=== PATIENT | female | born 1975 | race Caucasian/White ===

== ENCOUNTER 2021-09-01 11:52 | Observation (INO) | payer BC, SELFPAY ==
[2021-09-01] VITALS (13 sets, daily range): BP systolic 144–157; BP diastolic 93–106; PULSE 91–112; RESP 20–25; TEMP 36.4–37.2; O2SAT 94–98; BMI 27.8
--- NOTE | ~2021-09-01 | CT_ITS ---
EXAMINATION: CTA chest PE protocol EXAM DATE: 09/01/2021 16:40 INDICATION: Shortness of breath. COVID positive. TECHNIQUE: Spiral CTA of the chest (pulmonary arteries) was performed with 100 cc Omnipaque 350 intr avenous contrast injection. Images were acquired during the pulmonary arterial phase. Coronal maxi mum intensity projection 3D-reconstructions were created by the technologist on dedicated workstation . Axial, coronal and sagittal reformatted images were reviewed. The dose-length product (DLP) for t his examination was 310.71 mGy-cm. The exposure was tailored according to patient size (auto mA exp osure control), and iterative reconstruction (ASIR) was used as additional dose reduction technique. There is no prior study for comparison. FINDINGS: Mildly limited subsegmental evaluation. No enhancement defects within the pulmonary arterie s. No thoracic aortic dissection. Mildly aneurysmal ascending aorta at 4.5 cm. The lungs are clear. Mild emphysema. There are no pleural or pericardial effusions. Tracheobronchial tree is patent. There is no mediastinal, hilar or axillary lymphadenopathy. There is no pneumothorax. Heart rossana l in size. There is mild coronary arterial calcification, arterial sclerosis. Upper abdomen is unr emarkable. There is thoracic spondylosis without osteoblastic or osteolytic lesions identified. IMPRESSION: 1. No pulmonary emboli suspected. No focal airspace disease. 2. Mild emphysema. Reviewed, dictated and finalized at location G. SCHOOL MANAGER
--- NOTE | ~2021-09-01 | XR_ITS ---
XR chest 2V 09/01/2021 12:30 Indication: Dyspnea. Procedure: 2 view chest Comparison: No prior studies for comparison. Findings: Bibasilar airspace disease, compatible with pneumonia. Heart size normal. No acute osseous abnormality. Impression: 1: Bibasilar airspace disease, compatible with pneumonia. Reviewed, dictated and finalized at location B. KITCHEN COOK Impression: 1: Bibasilar airspace disease, compatible with pneumonia.
--- NOTE | 2021-09-01 11:59 | ECG_ITS ---
Measurements Intervals [place] Rate: 105 P: 77 NV: 145 QRS: 59 QRSD: 86 T: 53 QT: 331 QTc: 438 Interpretive Statements SINUS TACHYCARDIA BASELINE ARTIFACT- III, AVL, V4, V6 ABNORMAL ECG Electronically Signed On 09-01-2021 13:58:54 PALLIATIVE CARE PHYSICIAN by Vivek Winn D.O.
[2021-09-01 12:12] LABS: Basophils Absolute Auto 0.2 K/mm3 (0.0-0.1); Basophils Percent Auto 1.3 % (0.2-1.2); Eosinophils Absolute Auto 1.2 K/mm3 (0-0.3); Eosinophils Percent Auto 8.8 % (0-4.4); Hematocrit 33.1 % (37.0-47.0); Immature Granulocyte Absolute 0.05 K/mm3 (0.00-0.031); Immature Granulocyte Percent A 0.4 % (0-0.5); Lymphocytes Absolute Auto 1.03 K/mm3 (0.9-3.2); Lymphocytes Percent Auto 7.8 % (18.3-44.2); Mean Corpuscular HGB Conc 27.2 g/dl (32-36); Mean Corpuscular Hemoglobin 19.6 pg (26-34); Mean Corpuscular Volume 72.1 fl (80-100); Mean Platelet Volume 9.9 fl (7.4-10.4); Monocytes Absolute Auto 0.5 K/mm3 (0.1-0.6); Monocytes Percent Auto 4.1 % (2.6-8.5); Neutrophils Absolute Auto 10.2 K/mm3 (1.3-6.7); Neutrophils Percent Auto 77.6 % (45.5-73.1); Platelet Count Result 404 k/mm3 (150-375); Red Blood Count 4.59 M/mm3 (4.2-5.4); Red Cell Distribution Width 18.6 % (11.5-14.5); White Blood Count 13.2 K/mm3 (4.5-10.0)
--- NOTE | 2021-09-01 12:17 | ED.GENADULT ---
HPI - General Adult General Chief complaint: Shortness of Breath/Dyspnea Stated complaint: COPD Time Seen by Provider: 09/01/21 12:00 Source: RN notes reviewed History of Present Illness HPI narrative: Patient presents emergency room from home for shortness of breath. Patient that she has a history of COPD and has had increased shortness of breath over the past 3 days states that she has been using her inhaler at home with no relief states he been doing work at her house and it is been colder and seems to be making her symptoms worse she denies any fevers or chills chest pain abdominal pain nausea vomiting or any other symptoms. States that she does have a history of tobacco use Related Data Allergies Allergy/AdvReac Type Severity Reaction Status Date / Time aripiprazole Allergy Unknown Swelling Verified 09/01/21 11:59 of Lip/Tongue/Throat Penicillins Allergy Unknown Difficulty Verified 09/01/21 16:07 Breathing Sulfa (Sulfonamide Allergy Unknown Difficulty Verified 09/01/21 16:07 Antibiotics) Breathing Review of Systems Review of Systems: Gen.: Denies fevers or chills ENT: Denies congestion Respiratory: See HPI CV: Denies chest pain or palpitations GI: Denies abdominal pain nausea, emesis or diarrhea Musculoskeletal: Denies back pain or muscle pain Neuro: Denies numbness, tingling, weakness or focal weakness Skin: Denies rash Except as documented, all other systems reviewed and negative [facility] Past Medical History Medical History (Updated 09/01/21 @ 17:12 by Carlos Das DO) COPD (chronic obstructive pulmonary disease) Social History Social History (Updated 09/01/21 @ 17:10 by Carlos Das DO) Smoking status: Current every day smoker Exam Narrative: APPEARANCE: No acute distress, nontoxic, resting in bed EYES: EOMI HEENT: Normocephalic, atraumatic, OMM RESPIRATORY: Mild respiratory distress wheezing throughout the bilateral lung martinez with decreased breath sounds in the bases CARDIOVASCULAR: Tachycardic regular without murmurs rubs or gallops. ABDOMINAL: Soft, nontender, nondistended, no rebound or guarding MUSCULOSKELETAl: Moves all extremities. No clubbing, cyanosis or edema. NEURO: Awake and alert. Following commands, speech normal, no focal deficits SKIN:: Warm, dry. No rashes lesions or abrasions PSYCHIATRIC: Normal affect/mood, Course Course Emergency Course: Following breathing treatment patient continues to have wheezing throughout bilateral lung martinez Discussed with TIMI Swartz for Dr. Cabezas presentation and work-up agrees with admission at this time Discussed with patient and family results of workup and diagnosis. Discussed need for admission. Patient and family understand and agree to current treatment plan Vital Signs Vital signs: Vital Signs Temperature 98 F 09/01/21 11:55 Pulse Rate 112 H 09/01/21 11:55 Respiratory Rate 20 09/01/21 11:55 Blood Pressure 155/102 H 09/01/21 11:55 Pulse Oximetry 97 09/01/21 11:55 Temperature 98 F 09/01/21 11:55 Pulse Rate 105 H 09/01/21 15:14 Respiratory Rate 25 H 09/01/21 15:14 Blood Pressure 152/105 H 09/01/21 15:14 Pulse Oximetry 94 09/01/21 15:14 Medical Decision Making Vital Signs Vital Signs: Vital Signs Temperature 98 F 09/01/21 11:55 Pulse Rate 112 H 09/01/21 11:55 Respiratory Rate 20 09/01/21 11:55 Blood Pressure 155/102 H 09/01/21 11:55 Pulse Oximetry 97 09/01/21 11:55 Temperature 98 F 09/01/21 11:55 Pulse Rate 105 H 09/01/21 15:14 Respiratory Rate 25 H 09/01/21 15:14 Blood Pressure 152/105 H 09/01/21 15:14 Pulse Oximetry 94 09/01/21 15:14 Lab Data Result diagrams: 09/01/21 12:02 09/01/21 12:02 Labs: Lab Results 09/01/21 09/01/21 09/01/21 Range/Units 12:01 12:02 12:02 WBC 13.2 H (4.5-10.0) K/mm3 RBC 4.59 (4.2-5.4) M/mm3 Hgb 9.0 L (12.0-15.0) g/dL Hct 33.1 L (37.0-47.0) % MCV 72.1
[2021-09-01 12:27] LABS: Alanine Aminotransferase 18 U/L (4-35); Albumin Level 4.3 g/dL (3.5-5.1); Alkaline Phosphatase 86 U/L (38-126); Anion Gap 6 mmol/L (8-16); Aspartate Amino Transferase 25 U/L (14-36); Bilirubin,Total 0.4 mg/dL (0.2-1.3); Blood Urea Nitrogen 15 mg/dL (7-17); Calcium 8.9 mg/dL (8.4-10.2); Carbon Dioxide 24 mmol/L (22-30); Chloride 106 mmol/L (98-107); Estimated CRCL calculation 92 ml/min; Estimated Glomerular Filt Rate > 60; Glucose 138 mg/dL (65-110); Potassium 4.1 mmol/L (3.4-5.0); Sodium 136 mmol/L (137-145)
[2021-09-01] MEDS: methylPREDNISolone SOD SUCC 125 MG VIAL IV PUSH (12:53)
[2021-09-01] MEDS: ALBUTEROL SULFATE NEB 2.5 MG/0.5 ML INH 5 MG INHALATION (13:06)
[2021-09-01] MEDS: IPRATROPIUM BR 0.02% INH SOLN 0.5 MG/2.5 ML VIAL INHALATION (13:06)
[2021-09-01 13:19] LABS: Anisocytosis 1+ (NORMAL); Hypochromasia 1+ (NORMAL); Ovalocytes 1+ (NORMAL); Platelet Estimate Adequate (Adequate); Tear Drop Cells 1+ (NORMAL)
[2021-09-01 13:43] LABS: Lactic Acid Reflex 1.1 mmol/L (0.7-2.1)
[2021-09-01 14:37] LABS: SARS-CoV-2 RNA PCR Positive
--- NOTE | 2021-09-01 15:30 | PM.IMHP ---
H&P: HPI History of Present Illness Date/Time: 09/01/21 15:30 Chief Complaint: Short of breath. Narrative: This is a 46-year-old female smoker with COPD, hypertension, anxiety, and recreational methamphetamine use who presented to the emergency today for evaluation of shortness of breath. She has not felt well for several days with a nonproductive cough and increasing dyspnea on lesser and lesser exertion. She has been using her inhaler at home with out much relief and she decided come in today. In the ER she did test positive for SARS-CoV-2 by PCR and with further questioning denies exposure to and she has not been vaccinated for Covid. She also denies fever, chills, sweats, headache, congestion, sore throat, chest pain, pleuritic pain, cough, nausea, vomiting, and diarrhea. Review of Systems Review of Systems: 12 systems were reviewed and are negative except as per HPI. [facility] Past Medical History Medical History (Updated 09/01/21 @ 20:17 by Sheridan Rothman PA-C) Chronic obstructive pulmonary disease Depression with anxiety Gastroesophageal reflux disease Hypertension Perforated peptic ulcer Shingles Surgical History Surgical History (Updated 09/01/21 @ 20:13 by Sheridan Rothman PA-C) History of cholecystectomy History of laparotomy Peripheral peptic ulcer. Family History Family History Mother Hypertension Father Hypertension Other Diabetes mellitus Hyperthyroidism Lupus Social History Social History (Updated 09/01/21 @ 20:14 by Sheridan Rothman PA-C) Social History: Surrogate decision-maker: Romelia Burgos, mother. Code status: Full code. Smoking packs per day: 1 Smoking cigarettes per day: 20.0 Smoking status: Current every day smoker Tobacco type: cigarettes Alcohol intake: never Substance use: current Substance use type: marijuana and methamphetamine Last use: 08/31/21 Meds Home Medications and Allergies Home Medications Medication Instructions Recorded Confirmed Type albuterol sulfate [ProAir HFA] 90 mcg INHALATION TID PRN 09/01/21 09/01/21 History amlodipine 10 mg PO DAILY 09/01/21 09/01/21 History clonazepam [Klonopin] 1 mg PO TID PRN 09/01/21 09/01/21 History famotidine [Acid Controller] 20 mg PO DAILY 09/01/21 09/01/21 History Allergies Allergy/AdvReac Type Severity Reaction Status Date / Time aripiprazole Allergy Unknown Swelling Verified 09/01/21 11:59 of Lip/Tongue/Throat Penicillins Allergy Unknown Difficulty Verified 09/01/21 16:07 Breathing Sulfa (Sulfonamide Allergy Unknown Difficulty Verified 09/01/21 16:07 Antibiotics) Breathing bupropion [From Wellbutrin] Allergy Confusion Verified 09/01/21 18:44 Vital Signs Vital Signs - 24 hr 09/01/21 11:55 09/01/21 12:16 09/01/21 13:04 Temperature 98 F Pulse Rate 112 H 98 Respiratory Rate 20 22 H Blood Pressure 155/102 H 152/106 H Pulse Oximetry 97 98 97 09/01/21 13:08 09/01/21 13:16 09/01/21 15:14 Temperature Pulse Rate 91 111 H 105 H Respiratory Rate 24 H 20 25 H Blood Pressure 152/105 H Pulse Oximetry 94 Exam Narrative: General: Mildly ill-appearing female in the setting of pain position in bed. Weight: 79.4 kg. BMI: 27.9. HEENT: PERRL, EOMI. Sclerae anicteric. Tacky mucous membranes. Oropharynx clear. Neck: Supple. No lymphadenopathy or JVD. Respiratory: Respirations are nonlabored. Diminished breath sounds throughout with increased expiratory phase and mild scattered wheezing. Cardiovascular: Tachycardic with regular rhythm and S1-S2. Gastrointestinal: Abdomen is soft, nontender, and nondistended with positive bowel sounds. Skin: Warm and dry. Fingernails. No rash or lesions on limited exam. Extremities: No cyanosis, clubbing, or edema. Radial and pedal pulses intact. Neurological: Alert. Cranial nerves 2-12 are grossly intact. No gross focal deficits to casual conversation. Psych
[2021-09-01 15:56] LABS: Ethanol < 10 mg/dL (<10)
[2021-09-01 16:07] LABS: Alveolar/Arterial O2 Gradient 51.7 mmHg; Base Excess ABG -3.3 mEq/l (+/-2.0); Fractional Inspired Oxygen 21 %; HCO3 ABG 20.1 mEq/l (22.0-26.0); Oxygen Content ABG 12.3 %vol (16.0-22.0); Oxygen Saturation ABG 92.8 % (95.0-100.0); Oxyhemoglobin 90.9 % THb (90.0-100.0); PCO2 ABG 30.4 mmHg (35.0-45.0); PO2 ABG 61.6 mmHg (80.0-100.0); PO2 FiO2 Ratio Arterial Blood 2.93 %; Total Hemoglobin 9.6 g/dL (12.0-18.0); pH ABG 7.439 (7.350-7.450)
[2021-09-01 16:08] LABS: Device ROOM AIR; Modified Allen's Test Pass; Site Drawn LEFT RADIAL
[2021-09-01 16:13] LABS: Add Urine Microscopic? YES; Appearance Urine Clear (Clear); Bacteria Urine Trace /hpf; Bilirubin Urine Negative (Negative); Blood Urine 3+ (Negative); Color Urine Straw (Yellow); Glucose Urine UA Negative (Negative); Ketones Urine Negative (Negative); Leukocyte Esterase Ur Negative LEU/UL (Negative); Mucus Urine Rare /lpf; Nitrate Urine Negative (Negative); Protein Urine Negative (Negative); Specific Grav Ur 1.011 (1.001-1.035); Squamous Epithelial Cell Urine Moderate /hpf (Few); Urobilinogen Urine Negative mg/dL (<2.0); WBC Urine 0-3 /hpf
[2021-09-01] MEDS: ALBUTEROL SULFATE (*SP) AEROSOL 1 PUFF 2 PUFF INHALATION (16:18)
[2021-09-01 16:34] LABS: Barbiturate Screen Urine Negative (Negative); Benzodiazepines Screen Urine Negative (Negative)
[2021-09-01 16:46] LABS: Cannabinoid Screen Urine Negative (Negative); Cocaine Screen Urine Negative (Negative); Methadone Screen Urine Negative (Negative); Opiate Screen Urine Negative (Negative); Phencyclidine Screen Urine Negative (Negative)
[2021-09-01 17:12] LABS: Amphetamine Screen Urine Positive (Negative)
--- NOTE | 2021-09-01 18:09 | PC.NURSE ---
report given to misti toro
--- NOTE | 2021-09-01 18:23 | ADMGEN ---
This patient, Amanda Pringle, was admitted to 3 [facility] Surg Room 310-01. Patient/family oriented to hospital policies and general routines including ID bracelet, bed and alarms, visiting hours, pain management, procedures, bathroom and other care routines, personal items, smoking policy, room service/diet, and visiting hours. Information on how to activate the Rapid Response Team has been discussed. Patient/Family are encouraged to report perceived risks to care and to ask questions if they do not understand what they are told or what they should do.
[2021-09-01 21:18] LABS: Iron 25 ug/dL (37-170)
[2021-09-01] MEDS: IPRATROPIUM BR 0.02% INH SOLN 0.5 MG/2.5 ML VIAL (21:27)
[2021-09-01 21:28] LABS: Percent Iron Saturation 6 % (20-50)
[2021-09-01 21:50] LABS: Thyroid Stimulating Hormone Reflex 0.849 uIU/mL (0.465-4.68)
[2021-09-01 21:54] LABS: Ferritin 3.85 ng/mL (6.24-137)
[2021-09-01] MEDS: DOXYCYCLINE 100 MG/NS 100 ML 100 MG/100 ML BAG IVPB (22:19)
[2021-09-01 22:26] LABS: Folic Acid 11.6 ng/mL (2.76->20)
[2021-09-01] MEDS: methylPREDNISolone SOD SUCC 125 MG VIAL 60 MG IV PUSH (23:13)
[2021-09-02] VITALS (12 sets, daily range): BP systolic 133–162; BP diastolic 86–98; PULSE 96–116; RESP 16–22; TEMP 36.6–37.3; O2SAT 94–99
[2021-09-02] MEDS: IPRATROPIUM BR 0.02% INH SOLN 0.5 MG/2.5 ML VIAL INHALATION ×2 (02:04→08:39)
[2021-09-02] MEDS: LEVALBUTEROL HFA (*SP) 15 GM INHALER 2 PUFF INHALATION ×4 (02:04→20:35)
[2021-09-02] MEDS: methylPREDNISolone SOD SUCC 125 MG VIAL 60 MG IV PUSH ×4 (05:21→23:43)
[2021-09-02 06:47] LABS: Basophils Percent Auto 0.2 % (0.2-1.2); Hematocrit 31.8 % (37.0-47.0); Hemoglobin 8.8 g/dL (12.0-15.0); Immature Granulocyte Absolute 0.12 K/mm3 (0.00-0.031); Lymphocytes Percent Auto 4.8 % (18.3-44.2); Mean Corpuscular HGB Conc 27.7 g/dl (32-36); Mean Corpuscular Hemoglobin 19.3 pg (26-34); Mean Corpuscular Volume 69.6 fl (80-100); Mean Platelet Volume 9.7 fl (7.4-10.4); Monocytes Absolute Auto 0.2 K/mm3 (0.1-0.6); Monocytes Percent Auto 1.4 % (2.6-8.5); Neutrophils Absolute Auto 11.5 K/mm3 (1.3-6.7); Neutrophils Percent Auto 92.6 % (45.5-73.1); Platelet Count Result 449 k/mm3 (150-375); Red Blood Count 4.57 M/mm3 (4.2-5.4); Red Cell Distribution Width 18.6 % (11.5-14.5); White Blood Count 12.4 K/mm3 (4.5-10.0)
[2021-09-02 07:05] LABS: Alanine Aminotransferase 19 U/L (4-35); Albumin Level 4.1 g/dL (3.5-5.1); Alkaline Phosphatase 83 U/L (38-126); Anion Gap 10 mmol/L (8-16); Aspartate Amino Transferase 24 U/L (14-36); Bilirubin,Total 0.4 mg/dL (0.2-1.3); Blood Urea Nitrogen 17 mg/dL (7-17); Calcium 8.7 mg/dL (8.4-10.2); Carbon Dioxide 21 mmol/L (22-30); Chloride 105 mmol/L (98-107); Estimated CRCL calculation 84 ml/min; Estimated Glomerular Filt Rate > 60; Glucose 205 mg/dL (65-110); Magnesium 1.9 mg/dL (1.6-2.3); Potassium 4.3 mmol/L (3.4-5.0); Sodium 136 mmol/L (137-145)
[2021-09-02 07:20] LABS: Anisocytosis 2+ (NORMAL); Atypical Lymphocytes Present
[2021-09-02] MEDS: FAMOTIDINE 20 MG TABLET PO (09:08)
[2021-09-02] MEDS: DOXYCYCLINE 100 MG/NS 100 ML 100 MG/100 ML BAG IVPB ×2 (09:08→21:00)
[2021-09-02] MEDS: amLODIPine BESYLATE 5 MG TABLET 10 MG PO (09:08)
[2021-09-02] MEDS: clonazePAM (*CRX) 0.5 MG TABLET 1 MG PO ×3 (09:16→23:43)
[2021-09-02 11:15] LABS: Glucose Point of Care 251 mg/dl (65-105)
[2021-09-02] MEDS: INSULIN ASPART (*BKC) 100 UNITS/ML SUB-Q (12:47)
--- NOTE | 2021-09-02 13:41 | PM.IMPN ---
Progress Note: A&P Assessment and Plan (1) Acute exacerbation of chronic obstructive airways disease: Code(s): J44.1 - Chronic obstructive pulmonary disease with (acute) exacerbation Status: Acute Assessment and Plan: -Secondary to ongoing tobacco abuse and COVID-19. -Scheduled nebulizers and methylprednisolone. -She has been started on doxycycline for possible concomitant pneumonia. (2) COVID-19: Code(s): U07.1 - COVID-19 Status: Acute Assessment and Plan: -Not requiring oxygen, no indication for remdesivir at this time -pt is unvaccinated (3) Microcytic anemia: Code(s): D50.9 - Iron deficiency anemia, unspecified Status: Acute Assessment and Plan: -Check iron studies. (4) Depression with anxiety: Code(s): F41.8 - Other specified anxiety disorders Status: Acute Assessment and Plan: -No acute issues. -Continue Klonopin as needed. (5) Gastroesophageal reflux disease: Code(s): K21.9 - Gastro-esophageal reflux disease without esophagitis Status: Acute Assessment and Plan: -No acute issues. -Continue famotidine. (6) Hypertension: Code(s): I10 - Essential (primary) hypertension Status: Acute Assessment and Plan: -Blood pressures were reviewed and they have been running high. -Continue amlodipine and monitor; make adjustments accordingly. Subjective Date/time seen: 09/02/21 13:41 Interval history: 46-year-old female smoker with COPD, hypertension, anxiety, and recreational methamphetamine, admitted for COPD exacerbation and COVID 19. Pt anxious and tearful on exam with pressured and tangential speech. She c/o productive cough with yellow sputum. SOB is improving. No chest pain. Does have nasal congestion. No sore throat. No N/V/abd pain. Pt states she uses meth daily but has never had withdrawals and can quit any time. Review of Systems Review of Systems: All systems reviewed & are unremarkable except as noted in HPI and below Exam Narrative: General: anxious, tearful, mildly ill appearing, disheveled appearance HEENT: PERRL. Sclerae anicteric. Neck: Supple. Respiratory: Mildy tachypneic. Diminished breath sounds throughout with increased expiratory phase and mild scattered wheezing. Cardiovascular: Tachycardic with regular rhythm and S1-S2. Gastrointestinal: Abdomen is soft, nontender, and nondistended with positive bowel sounds. Skin: Warm and dry. . Extremities: No edema, moves all 4 extremities Neurological: Alert. Cranial nerves 2-12 are grossly intact. No gross focal deficits to casual conversation. Psychiatric: Pressured and tangential speech. Poor eye contact. Objective Data Vital Signs Vital Signs: Vital Signs - 24 hr 09/01/21 15:14 09/01/21 18:06 09/01/21 19:05 Temperature 99.0 F Pulse Rate 105 H 110 H 105 H Respiratory Rate 25 H 21 H 20 Blood Pressure 152/105 H 144/93 H 157/100 H Pulse Oximetry 94 96 94 09/01/21 21:00 09/01/21 21:10 09/01/21 21:32 Temperature Pulse Rate 110 H 110 H 110 H Respiratory Rate 24 H 24 H 24 H Blood Pressure Pulse Oximetry 94 09/01/21 21:35 09/01/21 21:55 09/02/21 00:00 Temperature 97.5 F L 98.1 F Pulse Rate 110 H 107 H 100 Respiratory Rate 24 H 20 16 Blood Pressure 149/95 H 152/95 H Pulse Oximetry 94 95 94 09/02/21 02:05 09/02/21 02:15 09/02/21 05:59 Temperature 97.8 F Pulse Rate 112 H 112 H 103 H Respiratory Rate 22 H 22 H 16 Blood Pressure 162/95 H Pulse Oximetry 94 09/02/21 08:00 09/02/21 08:40 09/02/21 08:49 Temperature 99.1 F Pulse Rate 116 H 108 H 110 H Respiratory Rate 18 22 H 22 H Blood Pressure 161/94 H Pulse Oximetry 97 94 09/02/21 11:18 Temperature 98.6 F Pulse Rate 116 H Respiratory Rate 18 Blood Pressure 162/86 H Pulse Oximetry 97 Intake/Output Intake/Output: Intake & Output 08/30/21 08/31/21
[2021-09-02 16:16] LABS: Glucose Point of Care 196 mg/dl (65-105)
[2021-09-02 20:34] LABS: Glucose Point of Care 211 mg/dl (65-105)
[2021-09-03] MEDS: LEVALBUTEROL HFA (*SP) 15 GM INHALER 2 PUFF INHALATION ×2 (02:22→07:57)
[2021-09-03 03:54] VITALS: BP 133/90; PULSE 96; RESP 18; TEMP 36.6; O2SAT 99
[2021-09-03] MEDS: methylPREDNISolone SOD SUCC 125 MG VIAL 60 MG IV PUSH ×2 (05:35→08:44)
[2021-09-03 06:45] LABS: Basophils Percent Auto 0.1 % (0.2-1.2); Hematocrit 31.3 % (37.0-47.0); Hemoglobin 8.6 g/dL (12.0-15.0); Immature Granulocyte Absolute 0.26 K/mm3 (0.00-0.031); Immature Granulocyte Percent A 1.2 % (0-0.5); Lymphocytes Absolute Auto 0.74 K/mm3 (0.9-3.2); Lymphocytes Percent Auto 3.3 % (18.3-44.2); Mean Corpuscular HGB Conc 27.5 g/dl (32-36); Mean Corpuscular Hemoglobin 19.5 pg (26-34); Mean Corpuscular Volume 70.8 fl (80-100); Mean Platelet Volume 10.1 fl (7.4-10.4); Monocytes Absolute Auto 0.3 K/mm3 (0.1-0.6); Monocytes Percent Auto 1.3 % (2.6-8.5); Neutrophils Percent Auto 94.1 % (45.5-73.1); Platelet Count Result 476 k/mm3 (150-375); Red Blood Count 4.42 M/mm3 (4.2-5.4); Red Cell Distribution Width 18.7 % (11.5-14.5); White Blood Count 22.3 K/mm3 (4.5-10.0)
[2021-09-03 07:09] LABS: Alanine Aminotransferase 15 U/L (4-35); Albumin Level 3.9 g/dL (3.5-5.1); Alkaline Phosphatase 73 U/L (38-126); Anion Gap 7 mmol/L (8-16); Aspartate Amino Transferase 17 U/L (14-36); Bilirubin,Total 0.3 mg/dL (0.2-1.3); Blood Urea Nitrogen 20 mg/dL (7-17); CRP < 0.5 mg/dL (<1.0); Calcium 9.4 mg/dL (8.4-10.2); Carbon Dioxide 23 mmol/L (22-30); Chloride 106 mmol/L (98-107); Estimated CRCL calculation 113 ml/min; Estimated Glomerular Filt Rate > 60; Glucose 153 mg/dL (65-110); Potassium 4.9 mmol/L (3.4-5.0); Sodium 136 mmol/L (137-145)
--- NOTE | 2021-09-03 08:19 | PM.IMPN ---
Progress Note: A&P Assessment and Plan (1) Acute exacerbation of chronic obstructive airways disease: Code(s): J44.1 - Chronic obstructive pulmonary disease with (acute) exacerbation Status: Acute Assessment and Plan: -Secondary to ongoing tobacco abuse and COVID-19. -Scheduled nebulizers and methylprednisolone. -She has been started on doxycycline for possible concomitant pneumonia. -Had marked increase in WBC today, will decrease solumedrol from q6hr to daily (2) COVID-19: Code(s): U07.1 - COVID-19 Status: Acute Assessment and Plan: -Not requiring oxygen, no indication for remdesivir at this time -pt is unvaccinated (3) Leukocytosis: Code(s): D72.829 - Elevated white blood cell count, unspecified Status: Acute Assessment and Plan: -see above -increase to 22.3 after initiation of steroids -she remains afebrile, tachycardia is improving (4) Microcytic anemia: Code(s): D50.9 - Iron deficiency anemia, unspecified Status: Acute Assessment and Plan: -iron, ferritin low -TIBC WNL -will start iron supplement (5) Depression with anxiety: Code(s): F41.8 - Other specified anxiety disorders Status: Acute Assessment and Plan: -No acute issues. -Continue Klonopin as needed. (6) Gastroesophageal reflux disease: Code(s): K21.9 - Gastro-esophageal reflux disease without esophagitis Status: Acute Assessment and Plan: -No acute issues. -Continue famotidine. (7) Hypertension: Code(s): I10 - Essential (primary) hypertension Status: Acute Assessment and Plan: -Blood pressures were reviewed and they have been running high. -Continue amlodipine and monitor; make adjustments accordingly. Subjective Date/time seen: 09/03/21 08:19 Interval history: 46-year-old female smoker with COPD, hypertension, anxiety, and recreational methamphetamine, admitted for COPD exacerbation and COVID 19. Pt is much calmer this morning, states she slept well last night. SOB is much better but she is still having productive cough with yellow sputum. Also has headache. No N/V/abd pain/D. No cp, LE pain or edema. Review of Systems Review of Systems: All systems reviewed & are unremarkable except as noted in HPI and below Exam Narrative: General: NAD, non toxic HEENT: PERRL. Sclerae anicteric. Poor dentition throughout. Neck: Supple. Respiratory: CTA bilaterally, no wheezing Cardiovascular: RRR, no murmur Gastrointestinal: Abdomen is soft, nontender, and nondistended with positive bowel sounds. Skin: Warm and dry. . Extremities: No edema, moves all 4 extremities Neurological: Alert. Cranial nerves 2-12 are grossly intact. No gross focal deficits to casual conversation. Psychiatric: Appropriate mood. Normal affect. Objective Data Vital Signs Vital Signs: Vital Signs - 24 hr 09/02/21 08:40 09/02/21 08:49 09/02/21 11:18 Temperature 98.6 F Pulse Rate 108 H 110 H 116 H Respiratory Rate 22 H 22 H 18 Blood Pressure 162/86 H Pulse Oximetry 94 97 09/02/21 15:24 09/02/21 20:29 09/02/21 21:56 Temperature 98.2 F 98.0 F Pulse Rate 114 H 111 H Respiratory Rate 18 18 Blood Pressure 144/88 H 143/98 H Pulse Oximetry 95 98 99 09/02/21 23:46 09/03/21 03:54 Temperature 97.9 F 97.9 F Pulse Rate 96 96 Respiratory Rate 18 18 Blood Pressure 133/90 133/90 Pulse Oximetry 99 99 Intake/Output Intake/Output: Intake & Output 08/31/21 09/01/21 09/02/21 09/03/21 23:59 23:59 23:59 23:59 Intake Total 100 2220 480 Balance 100 2220 480 Meds/Results Medications: Active Medications Generic Name Dose Route Start Last Admin Trade Name Jamesq PRN Reason Stop Dose Admin Amlodipine Besylate 10 mg 09/02/21 09:00 09/02/21 09:08 Amlodipine Besylate 5 Mg Tablet PO 10 mg DAILY TITO Administration Clonaze
[2021-09-03 08:23] LABS: Glucose Point of Care 150 mg/dl (65-105)
[2021-09-03 08:27] VITALS: BP 136/90; PULSE 94; RESP 18; TEMP 36.3; O2SAT 91
[2021-09-03 08:36] LABS: Lactic Acid Reflex 1.7 mmol/L (0.7-2.1)
[2021-09-03] MEDS: ACETAMINOPHEN 325 MG TABLET 650 MG PO (08:42)
[2021-09-03] MEDS: DOXYCYCLINE 100 MG/NS 100 ML 100 MG/100 ML BAG IVPB (08:42)
[2021-09-03 08:43] LABS: Hemoglobin A1C 5.6 % (<5.7)
[2021-09-03] MEDS: ENOXAPARIN 40 MG/0.4 ML SYRINGE SUB-Q (08:43)
[2021-09-03] MEDS: FAMOTIDINE 20 MG TABLET PO (08:43)
[2021-09-03] MEDS: amLODIPine BESYLATE 5 MG TABLET 10 MG PO (08:43)
[2021-09-03] MEDS: clonazePAM (*CRX) 0.5 MG TABLET 1 MG PO ×2 (08:45→13:32)
[2021-09-03] MEDS: POLYSACCHARIDE IRON COMPLEX 150 MG CAPSULE PO (10:09)
[2021-09-03 12:00] VITALS: BP 139/79; PULSE 107; RESP 18; TEMP 36.3; O2SAT 96
[2021-09-03 12:02] LABS: Glucose Point of Care 268 mg/dl (65-105)
[2021-09-03] MEDS: INSULIN ASPART (*BKC) 100 UNITS/ML SUB-Q (12:25)
--- NOTE | 2021-09-03 13:55 | PC.NURSE ---
Patient's mother arrived to the floor wanting to see patient. Patient and family educated on visitor policy and protocol in place with patient's on droplet isolation. Patient highly anxious and stating is wanting to sign out and leave. This nurse notified provider and made aware that patient is wanting to leave AMA. Patient educated regarding current diagnosis, WBC being elevated and that the provider will not discharge patient due to current clinical status. Patient repeated that she was not going to stay and that she wanted to go home with her mother. AMA documentation signed. IV site removed prior to dc. Home medications returned.
--- NOTE | 2021-09-03 16:05 | PM.DS ---
DS: Admitting Diagnosis Discharge Date 09/03/21 Admitting Diagnosis copd exacerbation, covid DS: Discharge Diagnosis Discharge Diagnosis (1) Acute exacerbation of chronic obstructive airways disease: Code(s): J44.1 - Chronic obstructive pulmonary disease with (acute) exacerbation Status: Acute Assessment and Plan: -Secondary to ongoing tobacco abuse and COVID-19. -Scheduled nebulizers and methylprednisolone. -She has been started on doxycycline for possible concomitant pneumonia. -Had marked increase in WBC today, will decrease solumedrol from q6hr to daily (2) COVID-19: Code(s): U07.1 - COVID-19 Status: Acute Assessment and Plan: -Not requiring oxygen, no indication for remdesivir at this time -pt is unvaccinated (3) Leukocytosis: Code(s): D72.829 - Elevated white blood cell count, unspecified Status: Acute Assessment and Plan: -see above -increase to 22.3 after initiation of steroids -she remains afebrile, tachycardia is improving -recheck cbc tomorrow (4) Microcytic anemia: Code(s): D50.9 - Iron deficiency anemia, unspecified Status: Acute Assessment and Plan: -iron, ferritin low -TIBC WNL -will start iron supplement (5) Depression with anxiety: Code(s): F41.8 - Other specified anxiety disorders Status: Acute Assessment and Plan: -No acute issues. -Continue Klonopin as needed. (6) Gastroesophageal reflux disease: Code(s): K21.9 - Gastro-esophageal reflux disease without esophagitis Status: Acute Assessment and Plan: -No acute issues. -Continue famotidine. (7) Hypertension: Code(s): I10 - Essential (primary) hypertension Status: Acute Assessment and Plan: -Blood pressures were reviewed and they have been running high. -Continue amlodipine and monitor; make adjustments accordingly. DS: Summary Hospital Course Reason for hospitalization: 46-year-old female smoker with COPD, hypertension, anxiety, and recreational methamphetamine, admitted for COPD exacerbation and COVID 19. Please see HPI for further details. Hospital Course: Please see above for details of hospital course. Unfortunately patient chose to sign out AMA today. She was educated regarding current diagnosis, significant leukocytosis, and risk of leaving including or deterioration. AMA documentation completed by RN. Time spent discussing smoking cessation with patient: more than 10 minutes Status at Discharge Cognitive/behavioral status at discharge: stable Functional status at discharge: independent ambulation Overall status at discharge: patient is not back to baseline Time Spent with Patient Time attestation: Total time spent providing and/or coordinating discharge services: 35 Time spent: Greater than 30 minutes Exam Narrative: General: NAD, non toxic HEENT: PERRL. Sclerae anicteric. Poor dentition throughout. Neck: Supple. Respiratory: CTA bilaterally, no wheezing Cardiovascular: RRR, no murmur Gastrointestinal: Abdomen is soft, nontender, and nondistended with positive bowel sounds. Skin: Warm and dry. . Extremities: No edema, moves all 4 extremities Neurological: Alert. Cranial nerves 2-12 are grossly intact. No gross focal deficits to casual conversation. Psychiatric: Appropriate mood. Normal affect. DS: Data Data Completed and Pending Labs on day of discharge: Labs from last 24 hours 09/03/21 09/03/21 09/03/21 11:57 07:58 07:58 WBC RBC Hgb Hct MCV MCH MCHC RDW Plt Count MPV Immature Gran % (Auto) Neut % (Auto) Lymph % (Auto) [place] % (Auto) Eos % (Auto) Baso % (Auto) Lymph # (Auto) [place] # (Auto) Eos # (Auto) Baso # (Auto) Abs Immat Gran (auto) Absolute Neuts (auto) Absolute Nucleated RBC Nucleated RBC %
== END 2021-09-03 13:55 | disposition left against medical advice (07) ==
LOC: ANHED 12:36 → ANH3MEDSUR 17:06
PROVIDERS: Physician Assistant; Admitting Provider Internal Medicine; Emergency Provider Emergency Medicine; PCP Nurse Practitioner Family; Visit Provider Physician Assistant
DX: U07.1 COVID-19 (principal); J43.9 Emphysema, unspecified; D72.829 Elevated white blood cell count, unspecified; R06.02 Shortness of breath; D50.9 Iron deficiency anemia, unspecified; F17.210 Nicotine dependence, cigarettes, uncomplicated; F15.90 Other stimulant use, unspecified, uncomplicated; F41.8 Other specified anxiety disorders; I10 Essential (primary) hypertension; K21.9 Gastro-esophageal reflux disease without esophagitis; Z90.49 Acquired absence of other specified parts of digestive tract; Z88.0 Allergy status to penicillin; Z79.899 Other long term (current) drug therapy
CPT/HCPCS: 36415; 36600; 71046; 71275; 80053; 80307; 81001; 81025; 82607; 82728; 82746; 82805; 82948; 83036; 83540; 83550; 83605; 83735; 84443; 85025; 86140; 87040; 93005; 94640; 96365; 96366; 96375; 96376; 99285; A9270; C9803; G0378; G0379; J1650; J1815; J2930; Q9967; U0003; U0005

== ENCOUNTER 2022-10-30 06:45 | Observation (INO) | payer BC, SELFPAY ==
[2022-10-30] VITALS (17 sets, daily range): BP systolic 135–155; BP diastolic 94–122; PULSE 105–121; RESP 14–27; TEMP 36.4–36.6; O2SAT 87–100; BMI 26.5
--- NOTE | ~2022-10-30 | XR_ITS ---
EXAMINATION: XR chest 1V portable INDICATION: Respiratory distress TECHNIQUE: Portable AP chest at 0801 hours COMPARISON: 09/01/2021 FINDINGS: There are airspace opacities of the mid and lower lung zones. No pleural effusion or pneumo thorax. The cardiomediastinal silhouette is normal. IMPRESSION: 1. Airspace opacities of the mid and lower lung zones, consistent with atelectasis versus pneumonia. Reviewed, dictated and finalized at location A. IMPRESSION: 1. Airspace opacities of the mid and lower lung zones, consistent with atelecta sis versus pneumonia.
--- NOTE | 2022-10-30 06:49 | ECG_ITS ---
Measurements Intervals [place] Rate: 102 P: 80 [place]: 147 QRS: 47 QRSD: 88 T: 48 QT: 352 QTc: 459 Interpretive Statements SINUS TACHYCARDIA POSSIBLE LEFT ATRIAL ENLARGEMENT [-0.1mV P WAVE IN V1/V2] NONSPECIFIC ST SEGMENT CHANGES ABNORMAL RHYTHM ECG COMPARED TO ECG 09/01/2021 12:01:27 NO SIGNIFICANT CHANGES Electronically Signed On 10-30-2022 7:53:37 CDT by Rip Palomo M.D.
[2022-10-30] MEDS: methylPREDNISolone SOD SUCC 125 MG VIAL IV PUSH (06:51)
--- NOTE | 2022-10-30 06:53 | ED.GENADULT ---
HPI - General Adult General Chief complaint: Shortness of Breath/Dyspnea Stated complaint: dyspnea Time Seen by Provider: 10/30/22 06:49 History of Present Illness HPI narrative: 47-year-old female history of COPD presented with shortness of breath. Per patient over the past several days she has been having shortness of breath typical of her COPD exacerbation. Today got worse so called EMS for further evaluation. En route EMS gave her DuoNebs. Denied chest pain, fevers, chills, nausea, vomiting, abdominal pain, dysuria, diarrhea, sick contacts. In ED, patient in respiratory distress, speaking short sentences, tachypnea, diffuse bilateral expiratory wheezes bilaterally. Protecting airway at the moment. IV Solu-Medrol, magnesium, DuoNebs given. IM epinephrine given. BiPAP at bedside. ROS limited due to condition Past medical history: COPD Allergies: Per EMR Related Data Home Medications Medication Instructions Recorded Confirmed albuterol sulfate 90 mcg/actuation 90 mcg inhalation TID PRN Dyspnea 09/01/21 09/01/21 aerosol inhaler (ProAir HFA) amlodipine 10 mg tablet 10 mg PO DAILY 09/01/21 09/01/21 clonazepam 1 mg tablet (Klonopin) 1 mg PO TID PRN Anxiety 09/01/21 09/01/21 famotidine 20 mg tablet (Acid 20 mg PO DAILY 09/01/21 09/01/21 Controller) Allergies Allergy/AdvReac Type Severity Reaction Status Date / Time aripiprazole Allergy Unknown Swelling Verified 09/01/21 11:59 of Lip/Tongue/Throat Penicillins Allergy Unknown Difficulty Verified 09/01/21 16:07 Breathing Sulfa (Sulfonamide Allergy Unknown Difficulty Verified 09/01/21 16:07 Antibiotics) Breathing bupropion [From Wellbutrin] Allergy Confusion Verified 09/01/21 18:44 Review of Systems Review of Systems: See HPI [facility] Past Medical History Medical History (Updated 10/30/22 @ 07:14 by Jag Russell MD) Chronic obstructive pulmonary disease Depression with anxiety Gastroesophageal reflux disease Hypertension Perforated peptic ulcer Shingles Surgical History Surgical History (Updated 09/01/21 @ 20:13 by Sheridan Rothman PA-C) History of cholecystectomy History of laparotomy Peripheral peptic ulcer. Family History Family History Mother Hypertension Father Hypertension Other Diabetes mellitus Hyperthyroidism Lupus Social History Social History (Updated 09/01/21 @ 20:14 by Sheridan Rothman PA-C) Social History: Surrogate decision-maker: Romelia Burgos, mother. Code status: Full code. Smoking packs per day: 1 Smoking cigarettes per day: 20.0 Smoking status: Current every day smoker Tobacco type: cigarettes Alcohol intake: never Substance use: current Substance use type: marijuana and methamphetamine Last use: 08/31/21 Exam Narrative: APPEARANCE: Alert, in respiratory distress, speaking one word sentences HEAD: atraumatic EYES: Pupils equal round an reactive to light, extra ocular movements intact, no conjunctival injection NOSE: Normal no drainage NECK: Supple, without meningismus RESPIRATORY: Bilateral expiratory wheezes, one word sentences, tachypnea, using accessory muscles CARDIOVASCULAR: Tachycardia, no visible jugular venous distension ABDOMINAL: Soft, nontender, nondistended, no guarding, no rebound/peritoneal signs, no costovertebral tenderness to palpation BACK: no midline tenderness to palpation, no step offs EXTREMITIES: No edema, palpable peripheral pulses, warm, well perfused, no tenderness to bilateral calves. NEURO: Alert, moving all extremities symmetrically, moving all extermities symmetrically SKIN:: Warm, dry. Normal color PSYCHIATRIC: Normal affect/mood Course Vital Signs Vital signs: Vital Signs Temperature 97.6 F 10/30/22 06:44 Pulse Rate 120 H 10/30/22 06:44 Respiratory Rate 24 H 10/30/22 06:44 Blood Pressure 143/122 H 10/30/22 06:44 Pulse Oximetry 100 10/30/22 06:44
[2022-10-30] MEDS: EPINEPHrine HCL INJ 1 MG/ML AMPUL 0.3 MG IM (06:55)
[2022-10-30] MEDS: LORazepam INJ (*CRX) 2 MG/ML VIAL 1 MG IV PUSH (06:58)
[2022-10-30] MEDS: LORazepam INJ (*CRX) 2 MG/ML VIAL (06:58)
[2022-10-30] MEDS: MAGNESIUM SULF 2 GM/WATER 50ML 2 GM/50 ML BAG IVPB (07:02)
--- NOTE | 2022-10-30 07:12 | PC.NURSE ---
Patient unable to wear mask as she stated I cannot wear that mask. I'm claustrophobic . Patient currently using a face mask and SPO2 is 98%.
[2022-10-30 07:17] LABS: Alveolar/Arterial O2 Gradient 48.8 mmHg; Base Excess ABG -3.4 mEq/l (+/-2.0); Basophils Absolute Auto 0.2 K/mm3 (0.0-0.1); Basophils Percent Auto 1.3 % (0.2-1.2); Eosinophils Absolute Auto 0.9 K/mm3 (0-0.3); Eosinophils Percent Auto 6.3 % (0-4.4); Fractional Inspired Oxygen 50 %; HCO3 ABG 23.7 mEq/l (22.0-26.0); Hematocrit 44.4 % (37.0-47.0); Hemoglobin 14.4 g/dL (12.0-15.0); Immature Granulocyte Absolute 0.04 K/mm3 (0.00-0.031); Immature Granulocyte Percent A 0.3 % (0-0.5); Lymphocytes Absolute Auto 2.39 K/mm3 (0.9-3.2); Lymphocytes Percent Auto 17.1 % (18.3-44.2); Mean Corpuscular HGB Conc 32.4 g/dl (32-36); Mean Corpuscular Volume 89.5 fl (80-100); Mean Platelet Volume 9.7 fl (7.4-10.4); Monocytes Percent Auto 7.2 % (2.6-8.5); Neutrophils Absolute Auto 9.5 K/mm3 (1.3-6.7); Neutrophils Percent Auto 67.8 % (45.5-73.1); Oxygen Content ABG 20.5 %vol (16.0-22.0); Oxygen Saturation ABG 99.5 % (95.0-100.0); Oxyhemoglobin 97.1 % THb (90.0-100.0); PCO2 ABG 50.7 mmHg (35.0-45.0); PO2 ABG 250.7 mmHg (80.0-100.0); PO2 FiO2 Ratio Arterial Blood 5.01 %; Platelet Count Result 416 k/mm3 (150-375); Red Blood Count 4.96 M/mm3 (4.2-5.4); Red Cell Distribution Width 16.8 % (11.5-14.5); Total Hemoglobin 14.6 g/dL (12.0-18.0)
[2022-10-30] MEDS: SODIUM CHLORIDE 0.9% IV 1,000 ML 999 ML IV CONT (07:17)
[2022-10-30 07:21] LABS: Modified Allen's Test Pass; Site Drawn RIGHT RADIAL; pH ABG 7.288 (7.350-7.450)
[2022-10-30 07:22] LABS: Device OTHER DEVICE
[2022-10-30 07:30] LABS: Anion Gap 8 mmol/L (8-16); Blood Urea Nitrogen 15 mg/dL (7-17); Calcium 8.8 mg/dL (8.4-10.2); Carbon Dioxide 23 mmol/L (22-30); Chloride 106 mmol/L (98-107); Estimated CRCL calculation 83 ml/min; Estimated Glomerular Filt Rate > 60; Glucose 120 mg/dL (65-110); Potassium 4.8 mmol/L (3.4-5.0); Sodium 137 mmol/L (137-145)
[2022-10-30 07:34] LABS: NT Pro B Type Natriuretic Pept 95 pg/mL (19.9-100); Troponin I 0.027 ng/mL (0.000-0.034)
[2022-10-30] MEDS: IPRATROPIUM BR 0.02% INH SOLN 0.5 MG/2.5 ML VIAL 1 MG INHALATION (07:36)
[2022-10-30] MEDS: LEVALBUTEROL NEB 1.25 MG/3 ML 2.5 MG INHALATION (07:36)
--- NOTE | 2022-10-30 07:48 | PCRCNOTE ---
Attempted to place patient on BiPAP to decrease work of breathing. Pt tolerated BiPAP for a few minutes then became agitated and ripped mask off. Pt states she is claustrophobic and will not wear the mask. I explained that it will help her breathing but she refused to wear it. Pt placed on continuous nebulizer. Will continue to monitor.
[2022-10-30] MEDS: methylPREDNISolone SOD SUCC 125 MG VIAL 60 MG IV PUSH ×2 (12:04→17:16)
--- NOTE | 2022-10-30 12:13 | PM.IMHP ---
H&P: HPI History of Present Illness Date/Time: 10/30/22 12:13 Chief Complaint: Increased shortness of breath Narrative: patient is a 47-year-old female with a past medical history of COPD, hypertension, pud, anxiety and depression who presented to the ED with complaints of increased shortness of breath. 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 She stated about 2 days ago she started working with chemicals and running up and down does stairs to get in and out of her hotel room has been a lot and she has been really feeling it. She stated that it all started with chest tightening. She did state that she tried to use her nebulizer however she could get to work. In the meantime she has been using her inhalers on a pretty consistent basis however she stated that has not been working as well. She does have a cough which she stated is chronic however no sputum production at this time. She did state that she is getting something up when she uses her nebulizer however she can not tell about the consists ear quality of the sputum because she does not spit it out she states. She also stated that she has bright yellow nasal discharge. She stated that the shortness of breath has gotten so bad that she has been lightheaded and dizzy and that she has been having headache as well. she is pretty persistent that the smells of the chemicals especially the purple fabuloso where the trigger. She is feeling a lot better at this time. She does have increased wheezes along with increased shortness of breath. Chest x-ray was performed in the ED and did show airspace opacities of the mid and lower lung zones consistent with atelectasis versus pneumonia. White blood cell count is slightly elevated at 14.0, ABG does indicate respiratory acidosis. In the ED patient was placed on BiPAP and is currently on a nasal cannula. She is very wheezy upon auscultation. Patient is being admitted to the hospitalist service under observation Review of Systems Review of Systems: All systems reviewed & are unremarkable except as noted in HPI and below PMFSH Past Medical History Medical History Abdominal aortic aneurysm (AAA) Chronic obstructive pulmonary disease Depression with anxiety Gastroesophageal reflux disease Hypertension Perforated peptic ulcer Pituitary tumor Shingles Surgical History Surgical History History of cholecystectomy History of laparotomy Peripheral peptic ulcer. Family History Family History Mother Hypertension Father Hypertension Other Diabetes mellitus Hyperthyroidism Lupus Social History Social History Social History: patient stated that she is 2 and half weeks clean from methamphetamines. She is a current everyday smoker however stated that she has cut back a lot. She wishes to be a full code at this time. She also states that she has no pets. Surrogate decision-maker: Romelia Burgos, mother. Code status: Full code. Smoking packs per day: 1 Smoking cigarettes per day: 20.0 Years smoked: 20 Smoking pack-years: 20.00 Smoking status: Current every day smoker Tobacco type: cigarettes Alcohol intake: never Substance use: current Substance use type: marijuana and methamphetamine Other substance usage details: Stated she stopped meth roughly 2.5 weeks ago Last use: 08/31/21 Lack of Transportation: No Lack of Food: Never True Current Housing: I Have Housing Concerned About Future Housing: No Difficulty Paying Gas/Electric Bills: No Difficulty Paying for Meds: No Currently Unemployed: YES Education: High School Diploma/GED Difficulty w/ Childcare or Family Care:
[2022-10-30 12:32] LABS: CRP < 0.5 mg/dL (<1.0)
[2022-10-30] MEDS: FERROUS SULFATE 324 MG TABLET PO (13:25)
[2022-10-30] MEDS: FAMOTIDINE 20 MG TABLET PO (13:26)
[2022-10-30] MEDS: amLODIPine BESYLATE 5 MG TABLET 10 MG PO (13:29)
[2022-10-30] MEDS: LEVALBUTEROL NEB 1.25 MG/3 ML 0.63 MG INHALATION (14:15)
[2022-10-30] MEDS: IPRATROPIUM BR 0.02% INH SOLN 0.5 MG/2.5 ML VIAL INHALATION (14:15)
[2022-10-30] MEDS: hydrOXYzine HCL 25 MG TABLET PO (19:10)
--- NOTE | 2022-10-31 14:15 | P.DS_ITS ---
DS: Admitting Diagnosis Discharge Date 10/30/22 Admitting Diagnosis COPD exacerbation DS: Discharge Diagnosis Discharge Diagnosis (1) Acute exacerbation of chronic obstructive pulmonary disease: Code(s): J44.1 - Chronic obstructive pulmonary disease with (acute) exacerbation Status: Acute Assessment and Plan: * long history of smoking * chest x-ray indicated opacities * patient admits to increased wheezes, increased shortness of breath, and sputum production * continue methylprednisone 60 mg Q 6, titrate and wean as able per wheezes * continue nebulizer treatments * add Levaquin 750 IV daily * resume home medications with Spiriva when breathing is better * supplemental oxygen wean to maintain saturations greater than 90% * tobacco cessation education given for greater than 5 minutes (2) Community acquired pneumonia: Code(s): J18.9 - Pneumonia, unspecified organism Status: Acute Assessment and Plan: * opacities noted on the chest x-ray of the middle and lower lung zones * start Levaquin IV 750 daily * could be what cause the COPD exacerbation * WBCs slightly elevated at 14,000 * continue to trend labs * supplemental oxygen wean to maintain saturations greater than 90% (3) Hypertension: Code(s): I10 - Essential (primary) hypertension Status: Acute Assessment and Plan: * blood pressure 151/99 * continue home amlodipine 10 mg p.o. daily * trend blood pressure * adjust therapy as indicated (4) Acute respiratory failure: Code(s): J96.00 - Acute respiratory failure, unspecified whether with hypoxia or hypercapnia Status: Acute Assessment and Plan: * ABGs indicated respiratory acidosis * patient placed on BiPAP for oxygen and breathing support * saturation this morning noted to be 87% on room air * most likely related to COPD and pneumonia * Trend oxygen saturations * wean oxygen as indicated (5) Tobacco abuse: Code(s): Z72.0 - Tobacco use Status: Acute Assessment and Plan: * smoking cessation education given * patch and gum ordered p.r.n. DS: Summary Hospital Course Hospital Course: patient is a 47-year-old female with a past medical history of COPD, hypertension, pud, anxiety and depression who presented to the ED with complaints of increased shortness of breath.? Patient stated that she had recently moved up to the 3rd floor of the [place] [id number] where she is living and she is working at [employer].? 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 She stated that it all started with chest tightening.? She did state that she tried to use her nebulizer however she could get to work.? In the meantime she has been using her inhalers on a pretty consistent basis however she stated that has not been working as well.? She does have a cough which she stated is chronic however no sputum production at this time.? She did state that she is getting something up when she uses her nebulizer however she can not tell about the consists ear quality of the sputum because she does not spit it out she states.? She also stated that she has bright yellow nasal discharge.? She stated that the shortness of breath has gotten so bad that she has been
--- NOTE | 2022-10-31 14:15 | PM.DS ---
DS: Admitting Diagnosis Discharge Date 10/30/22 Admitting Diagnosis COPD exacerbation DS: Discharge Diagnosis Discharge Diagnosis (1) Acute exacerbation of chronic obstructive pulmonary disease: Code(s): J44.1 - Chronic obstructive pulmonary disease with (acute) exacerbation Status: Acute Assessment and Plan: long history of smoking chest x-ray indicated opacities patient admits to increased wheezes, increased shortness of breath, and sputum production continue methylprednisone 60 mg Q 6, titrate and wean as able per wheezes continue nebulizer treatments add Levaquin 750 IV daily resume home medications with Spiriva when breathing is better supplemental oxygen wean to maintain saturations greater than 90% tobacco cessation education given for greater than 5 minutes (2) Community acquired pneumonia: Code(s): J18.9 - Pneumonia, unspecified organism Status: Acute Assessment and Plan: opacities noted on the chest x-ray of the middle and lower lung zones start Levaquin IV 750 daily could be what cause the COPD exacerbation WBCs slightly elevated at 14,000 continue to trend labs supplemental oxygen wean to maintain saturations greater than 90% (3) Hypertension: Code(s): I10 - Essential (primary) hypertension Status: Acute Assessment and Plan: blood pressure 151/99 continue home amlodipine 10 mg p.o. daily trend blood pressure adjust therapy as indicated (4) Acute respiratory failure: Code(s): J96.00 - Acute respiratory failure, unspecified whether with hypoxia or hypercapnia Status: Acute Assessment and Plan: ABGs indicated respiratory acidosis patient placed on BiPAP for oxygen and breathing support saturation this morning noted to be 87% on room air most likely related to COPD and pneumonia Trend oxygen saturations wean oxygen as indicated (5) Tobacco abuse: Code(s): Z72.0 - Tobacco use Status: Acute Assessment and Plan: smoking cessation education given patch and gum ordered p.r.n. DS: Summary Hospital Course Hospital Course: patient is a 47-year-old female with a past medical history of COPD, hypertension, pud, anxiety and depression who presented to the ED with complaints of increased shortness of breath.? 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 She stated that it all started with chest tightening.? She did state that she tried to use her nebulizer however she could get to work.? In the meantime she has been using her inhalers on a pretty consistent basis however she stated that has not been working as well.? She does have a cough which she stated is chronic however no sputum production at this time.? She did state that she is getting something up when she uses her nebulizer however she can not tell about the consists ear quality of the sputum because she does not spit it out she states.? She also stated that she has bright yellow nasal discharge.? She stated that the shortness of breath has gotten so bad that she has been lightheaded and dizzy and that she has been having headache as well. she is pretty persistent that the smells of the chemicals especially the purple fabuloso where the trigger.? She is feeling a lot better at this time.? She does have increased wheezes along with increased shortness of breath.? Chest x-ray was performed in the ED and did show airspace opacities of the mid and lower lung zones consistent with atelectasis versus pneumonia.? White blood cell count is slightly elevated at 14.0, ABG does indic
== END 2022-10-30 19:39 | disposition left against medical advice (07) ==
LOC: ANHED 07:51 → ANH2MED 10:17
PROVIDERS: Nurse Practitioner; Admitting Provider Chiropractor; Emergency Provider Emergency Medicine; PCP Nurse Practitioner Family; Visit Provider Chiropractor
DX: J44.1 Chronic obstructive pulmonary disease with (acute) exacerbation (principal); J18.9 Pneumonia, unspecified organism; I10 Essential (primary) hypertension; J96.00 Acute respiratory failure, unspecified whether with hypoxia or hypercapnia; R00.0 Tachycardia, unspecified; F41.8 Other specified anxiety disorders; K21.9 Gastro-esophageal reflux disease without esophagitis; R94.31 Abnormal electrocardiogram [ECG] [EKG]; F17.210 Nicotine dependence, cigarettes, uncomplicated; F12.90 Cannabis use, unspecified, uncomplicated; F15.90 Other stimulant use, unspecified, uncomplicated; Z79.51 Long term (current) use of inhaled steroids; Z79.899 Other long term (current) drug therapy; Z82.49 Family history of ischemic heart disease and other diseases of the circulatory system
CPT/HCPCS: 36415; 36600; 71045; 80048; 82805; 83880; 84484; 85025; 86140; 93005; 94640; 96361; 96365; 96372; 96375; 96376; 99285; A9270; G0378; G0379; J0171; J1956; J2060; J2930; J3475; J7030

== ENCOUNTER 2022-11-05 22:57 | Inpatient (IN) | payer BC, SELFPAY ==
[2022-11-05] VITALS (10 sets, daily range): BP systolic 154–180; BP diastolic 92–107; PULSE 99–126; RESP 17–28; TEMP 36.6; O2SAT 95–100
--- NOTE | ~2022-11-05 | XR_ITS ---
EXAMINATION: XR abdomen NG/feed tube insert DATE: 11/05/2022 23:57 INDICATION: Respiratory failure. Orogastric tube placement. TECHNIQUE: 1. frontal view of the chest was obtained. 2. AP view of the abdomen was obtained. COMPARISON: Chest radiograph dated 10/30/2022 FINDINGS: Chest: Endotracheal tube tip 3.2 cm above the ayala. Lungs are clear with no focal airspace opacities, pulm onary edema, pleural effusion or pneumothorax. The cardiomediastinal silhouette is normal. Visualized bones and soft tissues are unremarkable. Abdomen: Nasogastric tube tip in proximal side port in the body of the stomach. There are some gas and stool a t the hepatic flexure the colon. No dilated loops of gas-filled bowel to suggest obstruction. IMPRESSION: 1. Endotracheal tube and orogastric tube in expected positions. 2. No acute cardiopulmonary disease. Reviewed, dictated and finalized at location A.
--- NOTE | ~2022-11-05 | XR_ITS ---
EXAMINATION: XR chest ET placement DATE: 11/05/2022 23:57 INDICATION: Respiratory failure. Orogastric tube placement. TECHNIQUE: frontal view of the chest was obtained. COMPARISON: Chest radiograph dated 10/30/2022 FINDINGS: Chest: Endotracheal tube tip 3.2 cm above the ayala. Lungs are clear with no focal airspace opacities, pulm onary edema, pleural effusion or pneumothorax. The cardiomediastinal silhouette is normal. Visualized bones and soft tissues are unremarkable. Abdomen: Nasogastric tube tip in proximal side port in the body of the stomach. There are some gas and stool a t the hepatic flexure the colon. No dilated loops of gas-filled bowel to suggest obstruction. IMPRESSION: 1. Endotracheal tube and orogastric tube in expected positions. 2. No acute cardiopulmonary disease. Reviewed, dictated and finalized at location A.
--- NOTE | ~2022-11-05 | XR_ITS ---
Portable chest x-ray Comparison: 11/08/2022 Clinical History: Respiratory failure Findings: Endotracheal tube and NG tube are in satisfactory positions. Possible minimal bibasilar pu lmonary edema. Cardiomediastinal silhouette is stable. Bones and soft tissues are unremarkable. Impression: Possible minimal bibasilar pulmonary edema. Support tubes, as above. Reviewed, dictated and finalized at location . Impression: Possible minimal bibasilar pulmonary edema. Support tubes, as above.
--- NOTE | ~2022-11-05 | XR_ITS ---
Portable chest x-ray Comparison: 11/07/2022 Clinical History: Respiratory Findings: Endotracheal tube and NG tube are in satisfactory positions. Lungs are essentially clear, without focal consolidation or pleural effusion. Cardiomediastinal silhouette is stable. Bones and s oft tissues are unremarkable. Impression: Support tubes, as above. Clear lungs. Reviewed, dictated and finalized at location M. Impression: Support tubes, as above. Clear lungs.
--- NOTE | ~2022-11-05 | XR_ITS ---
Portable chest x-ray Comparison: 11/06/2022 Clinical History: Respiratory failure Findings: Endotracheal tube and NG tube are in satisfactory positions. Lungs are clear, without foca l consolidation or pleural effusion. Cardiomediastinal silhouette is stable. Bones and soft tissues are unremarkable. Impression: Clear lungs. Support tubes, as above. Reviewed, dictated and finalized at location . Impression: Clear lungs. Support tubes, as above.
--- NOTE | ~2022-11-05 | XR_ITS ---
Portable chest x-ray Comparison: 11/10/2022 Clinical History: Respiratory failure Findings: Lungs are clear, without focal consolidation or pleural effusion. Cardiomediastinal silho uette is stable. Bones and soft tissues are unremarkable. Impression: Normal chest. Reviewed, dictated and finalized at [facility]. Impression: Normal chest.
--- NOTE | ~2022-11-05 | XR_ITS ---
EXAMINATION: XR chest 1V portable DATE: 11/06/2022 06:12 INDICATION: Respiratory failure TECHNIQUE: frontal view of the chest was obtained. COMPARISON: Chest radiograph dated 11/05/2022 FINDINGS: Endotracheal tube tip 3.0 cm above the ayala. Nasogastric tube extends below the left hemidiaphragm with distal tip collimated off the study. Lungs remain clear with no focal airspace opacities, pulmo nary edema, pleural effusion or pneumothorax. The cardiomediastinal silhouette is normal. Mild thorac ic levocurvature. IMPRESSION: 1. No acute cardiopulmonary disease. Reviewed, dictated and finalized at location A.
--- NOTE | ~2022-11-05 | XR_ITS ---
EXAMINATION: XR chest 1V portable DATE: 11/12/2022 05:55 INDICATION: Acute respiratory failure. TECHNIQUE: A single frontal view of the chest was obtained. COMPARISON: Chest single view 11/11/2022, chest CT 09/01/2021 FINDINGS: The chest demonstrates clear lungs without pneumonia, pleural effusion, or pneumothorax. Th e heart size is normal. IMPRESSION: 1. No acute cardiopulmonary disease. Reviewed, dictated and finalized at location A.
--- NOTE | ~2022-11-05 | XR_ITS ---
Portable chest x-ray Comparison: 11/09/2022 Clinical History: Acute respiratory failure Findings: Endotracheal tube and NG tube are in satisfactory positions. Lungs are clear, without foca l consolidation or pleural effusion. Cardiomediastinal silhouette is stable. Bones and soft tissues are unremarkable. Impression: Clear lungs. Support tubes, as above. Reviewed, dictated and finalized at location . Impression: Clear lungs. Support tubes, as above.
--- NOTE | 2022-11-05 23:06 | ECG_ITS ---
Measurements Intervals [place] Rate: 114 P: 69 LA: 148 QRS: 73 QRSD: 76 T: 121 QT: 342 QTc: 473 Interpretive Statements SINUS TACHYCARDIA POSSIBLE RIGHT ATRIAL ENLARGEMENT BASELINE ARTIFACT- I, II, III, AVR, AVL, AVF, V1-V6 ABNORMAL ECG COMPARED TO ECG 10/30/2022 07:49:20 NO SIGNIFICANT CHANGES Electronically Signed On 11-07-2022 6:23:18 CDT by Vivek Winn D.O.
--- NOTE | 2022-11-05 23:15 | ED.GENADULT ---
HPI - General Adult General Chief complaint: Shortness of Breath/Dyspnea <Misael Young PA-C - Last Filed: 11/06/22 02:17> Stated complaint: sob <Misael Young PA-C - Last Filed: 11/06/22 02:17> Time Seen by Provider: 11/05/22 23:13 <Misael Young PA-C - Last Filed: 11/06/22 02:17> Source: patient <Misael Young PA-C - Last Filed: 11/06/22 02:17> Mode of arrival: EMS <AMBROSE Chu Last Filed: 11/06/22 02:17> Limitations: clinical condition <Misael Young PA-C - Last Filed: 11/06/22 02:17> History of Present Illness HPI narrative: This is a 47-year-old female with PMH of COPD who presents to the ED via EMS for chief complaint of respiratory distress onset this evening just prior to arrival. Patient working very hard to breathe during the history. History is limited. She has had many exacerbations of COPD including 1 last week. She was admitted to the hospital and ended up leaving AMA. She is anxious about wearing a mask and is refusing noninvasive measures. Endorses cough. Denies chest pain. Pt states she is still smoking cigarettes. History limited due to condition. Per family, patient uses crack and meth. <Misael Young PA-C - Last Filed: 11/06/22 02:17> Related Data Home medications: Home Medications Medication Instructions Recorded Confirmed albuterol sulfate 90 mcg/actuation 90 mcg inhalation Q4-6H PRN Dyspnea 09/01/21 11/06/22 aerosol inhaler (ProAir HFA) amlodipine 10 mg tablet 10 mg PO DAILY 09/01/21 11/06/22 famotidine 20 mg tablet (Acid 20 mg PO BID 09/01/21 11/06/22 Controller) Spiriva with HandiHaler 18 mcg inhalation DAILY 10/30/22 11/06/22 ferrous sulfate 325 mg (65 mg 325 mg PO TID 10/30/22 11/06/22 iron) tablet (FeroSul) sertraline 25 mg tablet 25 mg PO DAILY PRN Anxiety 10/30/22 11/06/22 atorvastatin 20 mg tablet 20 mg PO DAILY 11/06/22 11/06/22 <Misael Young PA-C - Last Filed: 11/06/22 02:17> Allergies/adverse reactions: Allergies Allergy/AdvReac Type Severity Reaction Status Date / Time aripiprazole Allergy Unknown Swelling Verified 11/05/22 23:14 of Lip/Tongue/Throat Penicillins Allergy Unknown Difficulty Verified 11/05/22 23:14 Breathing Sulfa (Sulfonamide Allergy Unknown Difficulty Verified 11/05/22 23:14 Antibiotics) Breathing bupropion [From Wellbutrin] Allergy Confusion Verified 11/05/22 23:14 <Misael Young PA-C - Last Filed: 11/06/22 02:17> Review of Systems Review of Systems: ROS unobtainable: Yes unobtainable due to medical condition <Misael Young PA-C - Last Filed: 11/06/22 02:17> [facility] Past Medical History Medical History: Medical History Abdominal aortic aneurysm (AAA) Chronic obstructive pulmonary disease Depression with anxiety Gastroesophageal reflux disease Hypertension Perforated peptic ulcer Pituitary tumor Shingles <Misael Young PA-C - Last Filed: 11/06/22 02:17> Surgical History Surgical History: Surgical History History of cholecystectomy History of laparotomy Perforated peptic ulcer. <Misael Young PA-C - Last Filed: 11/06/22 02:17> Family History Family History: Family History Mother Hypertension Father Hypertension Other Diabetes mellitus Hyperthyroidism Lupus <AMBROSE Chu Last Filed: 11/06/22 02:17> Social History Social History: Social History Social History: The patient is currently living in a hotel with her boyfriend. She has a long history of methamphetamine abuse both snorting and smoking. She is smokes tobacco daily. Her boyfriend states that she does not drink any alcohol. Surrogate decision-maker: Romelia Burgos, mother. Code status: Full code. Smoking packs per day: 1 Smo
[2022-11-05 23:18] LABS: Basophils Absolute Auto 0.2 K/mm3 (0.0-0.1); Basophils Percent Auto 0.8 % (0.2-1.2); Eosinophils Absolute Auto 1.8 K/mm3 (0-0.3); Eosinophils Percent Auto 7.2 % (0-4.4); Hematocrit 48.9 % (37.0-47.0); Hemoglobin 15.7 g/dL (12.0-15.0); Immature Granulocyte Absolute 0.12 K/mm3 (0.00-0.031); Immature Granulocyte Percent A 0.5 % (0-0.5); Lymphocytes Absolute Auto 3.39 K/mm3 (0.9-3.2); Lymphocytes Percent Auto 13.8 % (18.3-44.2); Mean Corpuscular HGB Conc 32.1 g/dl (32-36); Mean Corpuscular Hemoglobin 29.6 pg (26-34); Mean Corpuscular Volume 92.3 fl (80-100); Mean Platelet Volume 9.9 fl (7.4-10.4); Monocytes Absolute Auto 1.6 K/mm3 (0.1-0.6); Monocytes Percent Auto 6.6 % (2.6-8.5); Neutrophils Absolute Auto 17.5 K/mm3 (1.3-6.7); Neutrophils Percent Auto 71.1 % (45.5-73.1); Platelet Count Result 433 k/mm3 (150-375); Red Cell Distribution Width 15.9 % (11.5-14.5); White Blood Count 24.6 K/mm3 (4.5-10.0)
[2022-11-05] MEDS: methylPREDNISolone SOD SUCC 125 MG VIAL IV PUSH (23:31)
[2022-11-05] MEDS: FENTANYL 2,500MCG/NS250ML(*CRX 2,500 MCG/250 ML BAG IV CONT (23:40)
[2022-11-05] MEDS: ALBUTEROL SULFATE NEB 2.5 MG/3 ML INH 10 MG INHALATION (23:50)
[2022-11-05] MEDS: IPRATROPIUM BR 0.02% INH SOLN 0.5 MG/2.5 ML VIAL 1.5 MG INHALATION (23:51)
[2022-11-05] MEDS: MIDAZOLAM 100MG/NS 100ML(*CRX) 100 MG/100 ML BAG IV CONT (23:58)
[2022-11-06] VITALS (59 sets, daily range): BP systolic 88–153; BP diastolic 66–106; PULSE 77–123; RESP 12–35; TEMP 36.3–36.7; O2SAT 95–100; BMI 28.5
[2022-11-06 00:12] LABS: Alanine Aminotransferase 24 U/L (6-35); Albumin Level 4.7 g/dL (3.5-5.1); Alkaline Phosphatase 73 U/L (38-126); Anion Gap 6 mmol/L (8-16); Aspartate Amino Transferase 33 U/L (14-36); Bilirubin,Total 0.7 mg/dL (0.2-1.3); Blood Urea Nitrogen 17 mg/dL (7-17); Carbon Dioxide 29 mmol/L (22-30); Chloride 104 mmol/L (98-107); Estimated CRCL calculation 102 ml/min; Estimated Glomerular Filt Rate > 60; Glucose 125 mg/dL (65-110); Potassium 4.2 mmol/L (3.4-5.0); Sodium 139 mmol/L (137-145)
--- NOTE | 2022-11-06 00:28 | PC.NURSE ---
2318 - Respiratory at bedside attempting to give breathing treatment. Pt ripped off mask, restless on stretcher, yelling I cant breathe . Pt requesting to be put out and refusing BiPAP. 2322 - EDP at bedside for intubation. Pt O2 saturations 91% by blowby NRB. 2324 - 100mg IVP succinylcholine and 20mg IVP etomidate per [facility] for intubation. 2325 - Successful intubation by EDP You. 7.0 ET tube and 24 @ lip. 2332 - OG placed. 2335 - Pt moving extremities, pulling at lines. Per [facility] EDP You, give 4mg IVP Versed. 2345 - Pt moving extremities, pulling at lines. Per [facility] EDP You, set fentanyl drip to 100 mcg/hr. 2348 - Pt moving extremities, pulling at lines. Per [facility] EDP You, give 2mg IVP Versed. 0017 - Pt moving extremities, pulling at lines. Per [facility] EDP You, set fentanyl drip to 175 mcg/hr and Versed drip to 3mg/hr.
--- NOTE | 2022-11-06 00:51 | ECG_ITS ---
Measurements Intervals [place] Rate: 108 P: 83 AR: 138 QRS: 62 QRSD: 88 T: 55 QT: 328 QTc: 441 Interpretive Statements SINUS TACHYCARDIA POSSIBLE RIGHT ATRIAL ENLARGEMENT [0.25mV P WAVE] NONSPECIFIC ST AND T WAVE ABNORMALITY ABNORMAL RHYTHM ECG COMPARED TO ECG 10/30/2022 07:49:20 NO SIGNIFICANT CHANGES Electronically Signed On 11-06-2022 13:42:35 CDT by Alvino Teixeira M.D.
--- NOTE | 2022-11-06 00:51 | PC.NURSE ---
Family at bedside
--- NOTE | 2022-11-06 00:53 | PM.IMHP ---
H&P: HPI History of Present Illness Date/Time: 11/06/22 00:53 Chief Complaint: Shortness of breath Narrative: 47-year-old female with a past medical history of COPD, methamphetamine abuse hypertension and anxiety who presented to the ER via EMS due to shortness of breath. The patient had been seen in the ER on the for shortness of breath and was in acute respiratory acidosis that the time the patient left against medical advice because she did not want to be placed on BiPAP. Per ER records and the patient's boyfriend's report the patient had been feeling more short of breath for a couple of days but acutely worsened today. The patient was evidently still telling the boyfriend not to call EMS but he was so concerned that he still called EMS. When they arrived on scene the patient was satting 80% on room air. She was placed on 4 L nasal cannula. She was extremely restless with increased work of breathing and tripoding. The patient acutely decompensated in the ER. They were unable to get ABG prior to her decompensation and she was intubated by the ER provider. Post intubation the patient was alarming high peak pressures. The amount of alarms with peak pressures improved after patient was adequately sedated. Initially sedation was on fentanyl and Versed. On evaluating the patient in the ER the patient was maxed out on both fentanyl and Versed. She is still fighting the vent. Subsequently gave orders for propofol push and switch sedation to propofol. Patient's sedation was much improved. How they patient's boyfriend reports the patient has not been coughing or having fevers. The patient has COVID PCRs were negative in the ER. He does admit that the patient had snorted some methamphetamines today prior to coming to the hospital. She also has a history of smoking methamphetamines. The patient had denied any chest pain to the ER provider prior to her decompensation. The patient's boyfriend denies patient having any GI symptoms. He reports that she was extremely anxious about coming to the ER and did not want to possibly be placed on BiPAP which is why she was refusing to let him call EMS initially Review of Systems Review of Systems: ROS unobtainable: Yes unobtainable due to endotracheal tube PMFSH Past Medical History Medical History Abdominal aortic aneurysm (AAA) Chronic obstructive pulmonary disease Depression with anxiety Gastroesophageal reflux disease Hypertension Perforated peptic ulcer Pituitary tumor Shingles Surgical History Surgical History (Updated 11/06/22 @ 08:29 by Paloma Torres DO) History of cholecystectomy History of laparotomy Perforated peptic ulcer. Family History Family History Mother Hypertension Father Hypertension Other Diabetes mellitus Hyperthyroidism Lupus Social History Social History (Updated 11/06/22 @ 08:31 by Paloma Torres DO) Social History: The patient is currently living in a hotel with her boyfriend. She has a long history of methamphetamine abuse both snorting and smoking. She is smokes tobacco daily. Her boyfriend states that she does not drink any alcohol. Surrogate decision-maker: Romelia Burgos, mother. Code status: Full code. Smoking packs per day: 1 Smoking cigarettes per day: 20.0 Years smoked: 30 Smoking pack-years: 30.00 Smoking status: Current every day smoker Tobacco type: cigarettes Alcohol intake: never Substance use: current Substance use type: marijuana and methamphetamine Last use: 11/05/2022 Lack of Transportation: No Lack of Food: Sometimes True Current Housing: I Do Not Have Housing Concerned About Future Housing: YES Difficulty Paying Gas/Electric Bills: YES Difficulty Paying for Meds: No Currently Unemployed: YES Education: High School Diploma/GED Difficulty w/ Childcare or Fam
[2022-11-06] MEDS: PROPOFOL IV EMULSION 100 ML 4.96 MG IV CONT (01:26)
--- NOTE | 2022-11-06 01:26 | PC.NURSE ---
Dr. Torres at bedside. Pt attempting to sit up on stretcher, pulling at lines. Per [facility] Dr. Torres, give 100mg IVP propofol bolus and initiate drip.
[2022-11-06 01:38] LABS: Alveolar/Arterial O2 Gradient 129.4 mmHg; Base Excess ABG -6.7 mEq/l (+/-2.0); Carboxyhemoglobin 0.8 % THb (0-2.0); Fractional Inspired Oxygen 100 %; HCO3 ABG 22.4 mEq/l (22.0-26.0); Methemoglobin ABG 0.5 %THb (0-1.5); Oxygen Content ABG 21.8 %vol (16.0-22.0); Oxygen Saturation ABG 99.8 % (95.0-100.0); Oxyhemoglobin 98.2 % THb (90.0-100.0); PO2 ABG 523.4 mmHg (80.0-100.0); PO2 FiO2 Ratio Arterial Blood 5.23 %; Reduced Hemoglobin 0.5 %THb (0-5.0); Total Hemoglobin 14.8 g/dL (12.0-18.0)
[2022-11-06 01:40] LABS: pH ABG 7.189 (7.350-7.450)
[2022-11-06 01:41] LABS: Device VENTILATOR; Modified Allen's Test Pass; PCO2 ABG 60.2 mmHg (35.0-45.0); Site Drawn LEFT RADIAL
[2022-11-06 01:44] LABS: Arterial Blood Gas Vent Mode CMV; Arterial Blood Gas Ventilator rate 16 /MIN
[2022-11-06] MEDS: SODIUM CHLORIDE 0.9% IV 1,000 ML 999 ML IV CONT ×2 (01:44→03:00)
[2022-11-06 01:45] LABS: Arterial Blood Gas PEEP 5 cmH2O; Arterial Blood Gas Tidal Volume 420 ml
[2022-11-06] MEDS: PROPOFOL IV EMULSION 200 MG/20 ML VIAL 100 MG IV PUSH (01:48)
[2022-11-06] MEDS: PROPOFOL IV EMULSION 200 MG/20 ML VIAL 25 MG IV PUSH (02:22)
[2022-11-06] MEDS: PROPOFOL IV EMULSION 100 ML 12.39 MG IV CONT (02:40)
[2022-11-06 02:51] LABS: Influenza A QL RT-PCR Negative (Negative); Influenza B QL RT-PCR Negative (Negative); SARS-CoV-2 RNA PCR Negative (Negative)
--- NOTE | 2022-11-06 03:00 | ADMGEN ---
This patient, Amanda Pringle, was admitted to Intensive Care Unit-5. Patient/family oriented to hospital policies and general routines including ID bracelet, bed and alarms, visiting hours, pain management, procedures, bathroom and other care routines, personal items, smoking policy, room service/diet, and visiting hours. Information on how to activate the Rapid Response Team has been discussed. Patient/Family are encouraged to report perceived risks to care and to ask questions if they do not understand what they are told or what they should do.
[2022-11-06] MEDS: FENTANYL 2,500MCG/NS250ML(*CRX 2,500 MCG/250 ML BAG IV CONT (04:01)
[2022-11-06] MEDS: SODIUM CHLORIDE 0.9% IV 1,000 ML 125 ML IV CONT ×3 (04:37→23:07)
[2022-11-06 04:39] LABS: Triglycerides 60 mg/dL (<150)
[2022-11-06] MEDS: methylPREDNISolone SOD SUCC 125 MG VIAL 60 MG IV PUSH ×3 (05:53→17:01)
[2022-11-06 05:54] LABS: Alveolar/Arterial O2 Gradient 149.7 mmHg; Base Excess ABG -6.7 mEq/l (+/-2.0); Carboxyhemoglobin 0.3 % THb (0-2.0); Fractional Inspired Oxygen 40 %; HCO3 ABG 20.9 mEq/l (22.0-26.0); Methemoglobin ABG 0.3 %THb (0-1.5); Oxygen Content ABG 18.7 %vol (16.0-22.0); Oxygen Saturation ABG 93.3 % (95.0-100.0); Oxyhemoglobin 92.9 % THb (90.0-100.0); PCO2 ABG 49.8 mmHg (35.0-45.0); PO2 ABG 78.2 mmHg (80.0-100.0); PO2 FiO2 Ratio Arterial Blood 1.95 %; Reduced Hemoglobin 6.5 %THb (0-5.0); Total Hemoglobin 14.3 g/dL (12.0-18.0)
[2022-11-06 05:56] LABS: Device VENTILATOR; Modified Allen's Test Pass; Site Drawn RIGHT RADIAL; pH ABG 7.241 (7.350-7.450)
[2022-11-06 05:57] LABS: Arterial Blood Gas PEEP 5 cmH2O; Arterial Blood Gas Tidal Volume 380 ml; Arterial Blood Gas Vent Mode CMV; Arterial Blood Gas Ventilator rate 22 /MIN
[2022-11-06] MEDS: PROPOFOL IV EMULSION 100 ML 24.78 MG IV CONT ×5 (06:03→21:11)
[2022-11-06] MEDS: PANTOPRAZOLE SODIUM IV 40 MG VIAL IV PUSH (08:00)
[2022-11-06] MEDS: ENOXAPARIN 40 MG/0.4 ML SYRINGE SUB-Q (08:01)
[2022-11-06] MEDS: MINERAL OIL/WHITE PETROLATUM OINTMENT 1 APPLIC EACH EYE ×2 (08:05→20:30)
--- NOTE | 2022-11-06 09:16 | WPDCNINT ---
Assessment and Plan Assessment and plan (1) Acute respiratory failure: Code(s): J96.00 - Acute respiratory failure, unspecified whether with hypoxia or hypercapnia Status: Acute Assessment and Plan: Acute respiratory failure secondary to COPD exacerbation Patient now intubated and on mechanical ventilation Diffuse wheezing ABG reviewed. Continue current ventilator setting. Ventilation limited by peak pressures Continue bronchodilators scheduled at this time Continue high-dose steroids Rocephin empiric. Blood cultures have been ordered and are pending. Check procalcitonin level Chest x-ray clear and does not show any pneumonia (2) Acute exacerbation of chronic obstructive pulmonary disease: Code(s): J44.1 - Chronic obstructive pulmonary disease with (acute) exacerbation Status: Acute Assessment and Plan: See above Plan DVT prophylaxis -Lovenox Stress ulcer prophylaxis -Protonix Nutrition -start Tube Feeds Code Status - Full Code Total Critical Care Time - 35 minutes Due to a high probability of clinically significant, life threatening deterioration, the patient required my highest level of preparedness to intervene emergently and I personally spent this critical care time directly and personally managing the patient. This critical care time included obtaining a history; examining the patient; pulse oximetry; ordering and review of studies; arranging urgent treatment with development of a management plan; evaluation of patient's response to treatment; frequent reassessment; and discussions with other providers. It was exclusive of separately billable procedures and treating other patients and teaching time. Please see Assessment and Plan section and the rest of the note for further information on patient assessment and treatment Nuclear Plant Instrument Technician Consult Note Consult date: 11/06/22 Reason for consult: Acute respiratory failure HPI: Amanda Pringle is a 47 year old female ?a past medical history of COPD, methamphetamine abuse hypertension and anxiety who presented to the ER via EMS due to shortness of breath.? The patient had been seen in the ER on the 10/30 for shortness of breath and was in acute respiratory acidosis that the time the patient left against medical advice because she did not want to be placed on BiPAP.? When EMS arrived on scene the patient was satting 80% on room air.? She was placed on 4 L nasal cannula.? She was extremely restless with increased work of breathing and tripoding.? The patient acutely decompensated in the ER.? She was intubated and placed on mechanical ventilation. She was sedated with propofol. Patient admitted to ICU for further evaluation management. History obtained from chart and Physician sign out. Pt intubated and sedated and unable to provide any other history. Workup in ER showed clear chest x-ray, cOVID PCRs were negative in the ER.? WBC elevated. ABG 7. patient's boyfriend admit that the patient had snorted some methamphetamines today prior to coming to the hospital.? She also has a history of smoking methamphetamines.? Review of Systems Review of Systems: ROS unobtainable: Yes unobtainable due to endotracheal tube, unobtainable due to medical condition and unobtainable due to mental status PMFSH Past Medical History Medical History Abdominal aortic aneurysm (AAA) Chronic obstructive pulmonary disease Depression with anxiety Gastroesophageal reflux disease Hypertension Perforated peptic ulcer Pituitary tumor Shingles Surgical History Surgical History History of cholecystectomy History of laparotomy Perforated peptic ulcer. Family History Family History Mother Hypertension Father Hypertension Other Diabetes mellitus Hyperthyroidism Lupus Social History Social Histor
[2022-11-06] MEDS: ATORVASTATIN 20 MG TABLET PO (09:29)
[2022-11-06] MEDS: cefTRIAXone 2 GM/NS 100 ML 2 GM/100 ML BAG IVPB (09:29)
[2022-11-06] MEDS: LEVALBUTEROL NEB 1.25 MG/3 ML INHALATION ×3 (09:46→20:02)
[2022-11-06] MEDS: IPRATROPIUM BR 0.02% INH SOLN 0.5 MG/2.5 ML VIAL INHALATION ×3 (09:46→20:02)
[2022-11-06 11:26] LABS: Glucose Point of Care 127 mg/dl (65-105)
[2022-11-06] MEDS: ROCURONIUM BROMIDE 50 MG/5 ML VIAL IV PUSH (13:16)
[2022-11-06 13:32] LABS: Procalcitonin < 0.0 ng/mL
[2022-11-06 17:04] LABS: Glucose Point of Care 149 mg/dl (65-105)
[2022-11-07] VITALS (38 sets, daily range): BP systolic 87–118; BP diastolic 52–86; PULSE 72–96; RESP 20–24; TEMP 36.2–37.4; O2SAT 93–100; BMI 30.7
[2022-11-07] MEDS: methylPREDNISolone SOD SUCC 125 MG VIAL 60 MG IV PUSH ×5 (00:16→23:43)
[2022-11-07 00:27] LABS: Glucose Point of Care 139 mg/dl (65-105)
[2022-11-07] MEDS: PROPOFOL IV EMULSION 100 ML 24.78 MG IV CONT ×7 (00:42→22:48)
[2022-11-07] MEDS: ROCURONIUM BROMIDE 50 MG/5 ML VIAL IV PUSH (00:42)
[2022-11-07] MEDS: IPRATROPIUM BR 0.02% INH SOLN 0.5 MG/2.5 ML VIAL INHALATION ×4 (02:19→20:10)
[2022-11-07] MEDS: LEVALBUTEROL NEB 1.25 MG/3 ML INHALATION ×4 (02:19→20:29)
[2022-11-07 03:56] LABS: Hematocrit 39.8 % (37.0-47.0); Hemoglobin 12.4 g/dL (12.0-15.0); Mean Corpuscular HGB Conc 31.2 g/dl (32-36); Mean Corpuscular Hemoglobin 30.1 pg (26-34); Mean Corpuscular Volume 96.6 fl (80-100); Mean Platelet Volume 10.1 fl (7.4-10.4); Platelet Count Result 306 k/mm3 (150-375); Red Blood Count 4.12 M/mm3 (4.2-5.4); Red Cell Distribution Width 16.1 % (11.5-14.5); White Blood Count 25.5 K/mm3 (4.5-10.0)
[2022-11-07 04:11] LABS: Alanine Aminotransferase 30 U/L (6-35); Albumin Level 3.6 g/dL (3.5-5.1); Alkaline Phosphatase 59 U/L (38-126); Anion Gap 5 mmol/L (8-16); Aspartate Amino Transferase 19 U/L (14-36); Bilirubin,Total 0.4 mg/dL (0.2-1.3); Blood Urea Nitrogen 32 mg/dL (7-17); Calcium 8.5 mg/dL (8.4-10.2); Carbon Dioxide 23 mmol/L (22-30); Chloride 109 mmol/L (98-107); Estimated CRCL calculation 66 ml/min; Estimated Glomerular Filt Rate > 60; Glucose 140 mg/dL (65-110); Magnesium 2.1 mg/dL (1.6-2.3); Potassium 5.5 mmol/L (3.4-5.0); Sodium 137 mmol/L (137-145)
[2022-11-07] MEDS: FENTANYL 2,500MCG/NS250ML(*CRX 2,500 MCG/250 ML BAG 20 MCG IV CONT (05:05)
[2022-11-07 05:07] LABS: Alveolar/Arterial O2 Gradient 81.6 mmHg; Base Excess ABG -4.9 mEq/l (+/-2.0); Carboxyhemoglobin 0.3 % THb (0-2.0); Fractional Inspired Oxygen 35 %; HCO3 ABG 24.3 mEq/l (22.0-26.0); Methemoglobin ABG 0.4 %THb (0-1.5); Oxygen Content ABG 17.6 %vol (16.0-22.0); Oxyhemoglobin 95.1 % THb (90.0-100.0); PO2 ABG 92.7 mmHg (80.0-100.0); PO2 FiO2 Ratio Arterial Blood 2.65 %; Reduced Hemoglobin 4.2 %THb (0-5.0); Total Hemoglobin 13.1 g/dL (12.0-18.0)
[2022-11-07 05:09] LABS: Device VENTILATOR; Modified Allen's Test Pass; PCO2 ABG 64.7 mmHg (35.0-45.0); Site Drawn RIGHT RADIAL; pH ABG 7.192 (7.350-7.450)
[2022-11-07 05:10] LABS: Arterial Blood Gas PEEP 5 cmH2O; Arterial Blood Gas Tidal Volume 380 ml; Arterial Blood Gas Vent Mode CMV; Arterial Blood Gas Ventilator rate 22 /MIN
[2022-11-07] MEDS: SODIUM CHLORIDE 0.9% IV 1,000 ML 125 ML IV CONT (07:09)
[2022-11-07] MEDS: ATORVASTATIN 20 MG TABLET PO (08:41)
[2022-11-07] MEDS: PANTOPRAZOLE SODIUM IV 40 MG VIAL IV PUSH (08:41)
[2022-11-07] MEDS: ENOXAPARIN 40 MG/0.4 ML SYRINGE SUB-Q (08:41)
[2022-11-07] MEDS: MINERAL OIL/WHITE PETROLATUM OINTMENT 1 APPLIC EACH EYE ×2 (08:41→20:00)
[2022-11-07] MEDS: FUROSEMIDE INJ 40 MG/4 ML VIAL 20 MG IV PUSH (08:53)
--- NOTE | 2022-11-07 09:08 | PCRCNOTE ---
This RT spoke to Dr. Braxton about patient morning ABG results. Dr. Braxton stated no changes at this time.
--- NOTE | 2022-11-07 09:19 | WPDINTPN ---
Progress Note: A&P Assessment and Plan (1) Acute respiratory failure: Code(s): J96.00 - Acute respiratory failure, unspecified whether with hypoxia or hypercapnia Status: Acute Assessment and Plan: Acute respiratory failure secondary to COPD exacerbation Patient now intubated and on mechanical ventilation Diffuse wheezing persists Overnight patient became dyssynchronous with the ventilator and was given another dose of neuromuscular sinan ABG reviewed and appears worse with respiratory acidosis and hypercarbia. Unable to increase ventilation due to high pressures. On holding sedation patient again became agitated and dyssynchronous with the ventilator Continue p.r.n. NMB Continue bronchodilators scheduled at this time Continue high-dose steroids Lasix IV x1 Rocephin empiric will be continued for COPD exacerbation. Blood cultures have been ordered and are pending. procalcitonin level was very low suggesting a systemic infection Chest x-ray clear and does not show any pneumonia (2) Acute exacerbation of chronic obstructive pulmonary disease: Code(s): J44.1 - Chronic obstructive pulmonary disease with (acute) exacerbation Status: Acute Assessment and Plan: See above (3) Hyperkalemia: Code(s): E87.5 - Hyperkalemia Status: Acute Assessment and Plan: Likely secondary to respiratory acidosis. Renal function is normal Bicarb, Lasix x 1 and Lokelma x 1 doses Plan DVT prophylaxis -Lovenox Stress ulcer prophylaxis -Protonix Nutrition -continue Tube Feeds Code Status - Full Code 11/06 I spoke to and updated patient's mother at bedside answered all questions. She appears frustrated the patient despite having severe COPD does not quit smoking. She was unaware that she was still using drugs. She admitted the patient is a noncompliant patient and once he is awake and off the ventilator she may leave AMA Total Critical Care Time - 34 minutes Due to a high probability of clinically significant, life threatening deterioration, the patient required my highest level of preparedness to intervene emergently and I personally spent this critical care time directly and personally managing the patient. This critical care time included obtaining a history; examining the patient; pulse oximetry; ordering and review of studies; arranging urgent treatment with development of a management plan; evaluation of patient's response to treatment; frequent reassessment; and discussions with other providers. It was exclusive of separately billable procedures and treating other patients and teaching time. Please see Assessment and Plan section and the rest of the note for further information on patient assessment and treatment Subjective Date/time seen: 11/07/22 Overnight events reviewed. Afebrile Continues to be on mechanical ventilation 30% FiO2. Overnight patient become dyssynchronous with the ventilator and desaturated. Patient was given 1 dose of neuromuscular sinan Continues to be sedated with propofol and fentanyl Vitals acceptable Review of Systems Review of Systems: ROS unobtainable: Yes unobtainable due to endotracheal tube, unobtainable due to medical condition and unobtainable due to mental status Exam Narrative: General: Pt is sedated, intubated and on mechanical ventilation Lungs/Chest: Trachea central Coarse BS B/L, continues to have diffuse bilateral wheezing Cardiac: RRR. Normal S1 S2. No murmurs Circulation: Pedal pulses are intact and symmetrical. Abdomen: Decreased bowel sounds. Obese. Soft. NT. ND. Extremities: No clubbing, cyanosis or edema. Warm : Trevino in place Neurologic: Unable to assess due to sedation. On holding sedation patient moves all 4 extremities and follows commands inconsistently. PERRL Skin: Several tattoos all over body Objective Data Vital Signs Vital Signs: Vital Signs - 24 hr 11/06/22 09:36 11/06/22 09:36 11/06/22 10:00 Temperature P
[2022-11-07] MEDS: SODIUM ZIRCONIUM CYCLOSILICATE 10 GM POWD.PACK FEED TUBE (09:26)
[2022-11-07] MEDS: cefTRIAXone 2 GM/NS 100 ML 2 GM/100 ML BAG IVPB (09:27)
[2022-11-07] MEDS: SODIUM BICARBONATE 8.4% 50 MEQ/50 ML SYRINGE IV PUSH (09:30)
[2022-11-07 11:19] LABS: Glucose Point of Care 180 mg/dl (65-105)
--- NOTE | 2022-11-07 17:05 | PM.IMPN ---
Progress Note: A&P Assessment and Plan (1) Acute respiratory failure: Qualifiers: Respiratory failure complication: hypoxia and hypercapnia Qualified Code(s): J96.01 - Acute respiratory failure with hypoxia; J96.02 - Acute respiratory failure with hypercapnia; J96.02 - Acute respiratory failure with hypercapnia Code(s): J96.00 - Acute respiratory failure, unspecified whether with hypoxia or hypercapnia Status: Acute (2) Tobacco abuse: Code(s): Z72.0 - Tobacco use Status: Acute (3) Gastroesophageal reflux disease: Qualifiers: Esophagitis presence: esophagitis presence not specified Qualified Code(s): K21.9 - Gastro-esophageal reflux disease without esophagitis Code(s): K21.9 - Gastro-esophageal reflux disease without esophagitis Status: Acute (4) Depression with anxiety: Code(s): F41.8 - Other specified anxiety disorders Status: Acute Plan Patient has acute hypoxic hypercapnic respiratory failure due to COPD exacerbation. Will continue the patient on scheduled methylprednisone 60 mg IV q.6. Will continue scheduled nebulizer treatments with Xopenex and Atrovent. Will place patient on empiric antibiotic therapy with Levaquin gets there was some underlying pneumonia. The patient does have severe leukocytosis but this could be due to infectious process versus acute stress reaction. Blood cultures are pending. Continue IV fluid hydration. Patient has been placed on Protonix for stress ulcer prophylaxis specially in the setting with patient has had a perforated ulcer in the past. The patient was is synchronous with the vent and speaking high pressures. I wanted to give patient rocuronium. Nursing staff wanted to try to decrease the patient's ventilator rate. ABG had not yet returned. He gave the okay to decrease patient's ventilator rate with pro visions regarding patient's ABG. If the patient's hypercapnia has not improved the patient will need to be placed on paralytic and tidal volume and or ventilator rate increased. Patient will need tobacco cessation education prior to discharge Will continue patient's home sertraline through G-tube. Will hold the patient's home antihypertensives as the patient's blood pressure is currently at the lower end of normal due to sedation efforts. 11/07/2022 interval history: 47-year-old female with history of COPD, and methamphetamine now in exacerbation and on ventilator being treated with methylprednisone and bronchodilator, patient seen by yeast culture developer and appreciate. Subjective Date/time seen: 11/07/22 17:05 Interval history: Shortness of breath Narrative: 47-year-old female with a past medical history of COPD, methamphetamine abuse hypertension and anxiety who presented to the ER via EMS due to shortness of breath.? The patient had been seen in the ER on the for shortness of breath and was in acute respiratory acidosis that the time the patient left against medical advice because she did not want to be placed on BiPAP.? Per ER records and the patient's boyfriend's report the patient had been feeling more short of breath for a couple of days but acutely worsened today.? The patient was evidently still telling the boyfriend not to call EMS but he was so concerned that he still called EMS.? When they arrived on scene the patient was satting 80% on room air.? She was placed on 4 L nasal cannula.? She was extremely restless with increased work of breathing and tripoding.? The patient acutely decompensated in the ER.? They were unable to get ABG prior to her decompensation and she was intubated by the ER provider.? Post intubation the patient was alarming high peak pressures.? The amount of alarms with peak pressures improved after patient was adequately sedated.? Initially sedation was on fentanyl and Versed.? On evaluating the patient in the ER the patient was maxed out on both fentanyl and Versed.? She is still fighting the vent.?
[2022-11-07] MEDS: SODIUM BICARBONATE TAB 650 MG TABLET PO (17:30)
[2022-11-07 18:22] LABS: Glucose Point of Care 134 mg/dl (65-105)
[2022-11-07] MEDS: FENTANYL 2,500MCG/NS250ML(*CRX 2,500 MCG/250 ML BAG 12.5 MCG IV CONT (18:43)
[2022-11-07 23:47] LABS: Glucose Point of Care 142 mg/dl (65-105)
[2022-11-08] VITALS (43 sets, daily range): BP systolic 91–114; BP diastolic 46–87; PULSE 63–98; RESP 10–22; TEMP 36.4–37.3; O2SAT 92–100
[2022-11-08] MEDS: PROPOFOL IV EMULSION 100 ML 24.78 MG IV CONT ×6 (02:51→21:21)
[2022-11-08] MEDS: LEVALBUTEROL NEB 1.25 MG/3 ML INHALATION ×4 (03:02→19:48)
[2022-11-08] MEDS: IPRATROPIUM BR 0.02% INH SOLN 0.5 MG/2.5 ML VIAL INHALATION ×4 (03:02→19:48)
[2022-11-08 04:15] LABS: Hematocrit 36.7 % (37.0-47.0); Hemoglobin 11.3 g/dL (12.0-15.0); Mean Corpuscular HGB Conc 30.8 g/dl (32-36); Mean Corpuscular Hemoglobin 30.3 pg (26-34); Mean Corpuscular Volume 98.4 fl (80-100); Mean Platelet Volume 10.4 fl (7.4-10.4); Platelet Count Result 288 k/mm3 (150-375); Red Blood Count 3.73 M/mm3 (4.2-5.4); Red Cell Distribution Width 16.3 % (11.5-14.5); White Blood Count 20.2 K/mm3 (4.5-10.0)
[2022-11-08 04:26] LABS: Triglycerides 96 mg/dL (<150)
[2022-11-08 04:30] LABS: Sodium 139 mmol/L (137-145)
[2022-11-08 04:31] LABS: Alanine Aminotransferase 27 U/L (6-35); Albumin Level 3.2 g/dL (3.5-5.1); Alkaline Phosphatase 51 U/L (38-126); Anion Gap 2 mmol/L (8-16); Aspartate Amino Transferase 20 U/L (14-36); Bilirubin,Total 0.3 mg/dL (0.2-1.3); Blood Urea Nitrogen 45 mg/dL (7-17); Carbon Dioxide 28 mmol/L (22-30); Chloride 109 mmol/L (98-107); Estimated CRCL calculation 77 ml/min; Estimated Glomerular Filt Rate > 60; Glucose 147 mg/dL (65-110); Magnesium 2.6 mg/dL (1.6-2.3)
[2022-11-08 05:15] LABS: Alveolar/Arterial O2 Gradient 69.5 mmHg; Base Excess ABG -1.8 mEq/l (+/-2.0); Carboxyhemoglobin 0.3 % THb (0-2.0); Fractional Inspired Oxygen 30 %; HCO3 ABG 26.2 mEq/l (22.0-26.0); Methemoglobin ABG 0.3 %THb (0-1.5); Oxygen Content ABG 17.5 %vol (16.0-22.0); Oxygen Saturation ABG 92.7 % (95.0-100.0); Oxyhemoglobin 92.7 % THb (90.0-100.0); PCO2 ABG 59.2 mmHg (35.0-45.0); PO2 ABG 74.8 mmHg (80.0-100.0); PO2 FiO2 Ratio Arterial Blood 2.49 %; Reduced Hemoglobin 6.7 %THb (0-5.0); Total Hemoglobin 13.4 g/dL (12.0-18.0)
[2022-11-08 05:18] LABS: pH ABG 7.264 (7.350-7.450)
[2022-11-08 05:19] LABS: Arterial Blood Gas Ventilator rate 22 /MIN; Device VENTILATOR; Modified Allen's Test Pass; Site Drawn LEFT RADIAL
[2022-11-08 05:20] LABS: Arterial Blood Gas PEEP 5 cmH2O; Arterial Blood Gas Tidal Volume 380 ml; Arterial Blood Gas Vent Mode CMV
[2022-11-08] MEDS: methylPREDNISolone SOD SUCC 125 MG VIAL 60 MG IV PUSH ×3 (06:14→17:05)
[2022-11-08] MEDS: SODIUM BICARBONATE TAB 650 MG TABLET PO (08:46)
[2022-11-08] MEDS: ATORVASTATIN 20 MG TABLET PO (08:46)
[2022-11-08] MEDS: ENOXAPARIN 40 MG/0.4 ML SYRINGE SUB-Q (08:46)
[2022-11-08] MEDS: MINERAL OIL/WHITE PETROLATUM OINTMENT 1 APPLIC EACH EYE ×2 (08:47→21:00)
[2022-11-08] MEDS: PANTOPRAZOLE SODIUM IV 40 MG VIAL IV PUSH (08:47)
[2022-11-08] MEDS: cefTRIAXone 2 GM/NS 100 ML 2 GM/100 ML BAG IVPB (08:51)
[2022-11-08] MEDS: FENTANYL 2,500MCG/NS250ML(*CRX 2,500 MCG/250 ML BAG 10 MCG IV CONT (09:00)
[2022-11-08 09:30] LABS: Alveolar/Arterial O2 Gradient 78.7 mmHg; Base Excess ABG 1.4 mEq/l (+/-2.0); Fractional Inspired Oxygen 30 %; HCO3 ABG 29.1 mEq/l (22.0-26.0); Oxygen Content ABG 15.5 %vol (16.0-22.0); Oxygen Saturation ABG 89.8 % (95.0-100.0); Oxyhemoglobin 90.3 % THb (90.0-100.0); PO2 ABG 64.2 mmHg (80.0-100.0); PO2 FiO2 Ratio Arterial Blood 2.14 %; Total Hemoglobin 12.2 g/dL (12.0-18.0)
[2022-11-08 09:34] LABS: Device VENTILATOR; Modified Allen's Test Pass; PCO2 ABG 60.4 mmHg (35.0-45.0); Site Drawn RIGHT RADIAL
[2022-11-08 09:35] LABS: Arterial Blood Gas Vent Mode ASV
[2022-11-08 09:37] LABS: Arterial Blood Gas PEEP 0 cmH2O
--- NOTE | 2022-11-08 11:16 | PCNFU ---
Nutrition Follow-Up Complete: Increased protein energy needs related to mechanical ventilation as evidenced by need for full tube feeds. Goal:Meet estimated protein energy needs Pt current nutrition is Vital AF 1.2 @ 50ml/hr = 1375 +propofol 654kcals =2029kcals, 82g protein, 892ml. Nutrition recommendation: Decrease tube feed rate to 35ml/hr to provide 924 + 654kcals propofol = 1578kcals per day, 58g protein. Add prosource modular for an additional 80kcals, 20g protein. Totals 1658kcals, 78g protein Last recorded weight is 79.3 kg. Bowel Motility: No BM at this time - adding miralax today Labs Reviewed: Hgb:11.3, HCT:36.7, Alb:3.2, BUN:45 Meds Noted: solumedrol, propofol at 24.78ml = 654kcals - to remain the same rate for now, novolog Skin: WNL Additional Notes: Pt remains on mechanical ventilation. Tube feeds running at goal rate of 50ml/hr and pt is tolerating. Noted elevated CO2. Current caloric intake is 2029kcals, (128% estimated needs). Recommend to decrease tube feeding rate to better meet caloric needs while on vent, add protein modular for additional protein requirements. See recommendation above, this will meet 100% caloric needs, 90-100% protein needs. *Est needs: 1575 [place] state, 72-83g protein (1.2-1.6g/kg IBW) Monitor daily in ICU rounds. Reassess every Monday and Monday
[2022-11-08 11:36] LABS: Glucose Point of Care 142 mg/dl (65-105)
[2022-11-08] MEDS: polyethylene glycoL 3350 17 GM POWD.PACK PO (11:52)
--- NOTE | 2022-11-08 13:44 | WPDINTPN ---
Progress Note: A&P Assessment and Plan (1) Acute respiratory failure: Code(s): J96.00 - Acute respiratory failure, unspecified whether with hypoxia or hypercapnia Status: Acute Assessment and Plan: Acute respiratory failure secondary to COPD exacerbation Patient now intubated and on mechanical ventilation Diffuse wheezing persists -patient had to be given neuromuscular blockade on the day of admission foreign ventilated dyssynchrony ABG reviewed and appears worse with respiratory acidosis and hypercarbia. -switch to ASV mode of ventilation with improvement in her ABGs and a peak airway pressures. -continue propofol and fentanyl for sedation Continue p.r.n. NMB Continue bronchodilators scheduled at this time Continue high-dose steroids Discontinued ceftriaxone on 11/08 -11/06 Blood cultures-preliminary report with no growth to date - procalcitonin level was very low suggesting a systemic infection -Chest x-ray clear and does not show any pneumonia (2) Acute exacerbation of chronic obstructive pulmonary disease: Code(s): J44.1 - Chronic obstructive pulmonary disease with (acute) exacerbation Status: Acute Assessment and Plan: See above (3) Hyperkalemia: Code(s): E87.5 - Hyperkalemia Status: Acute Assessment and Plan: Likely secondary to respiratory acidosis. Renal function is normal -potassium has normalized Plan DVT prophylaxis -Lovenox Stress ulcer prophylaxis -Protonix Nutrition -continue Tube Feeds Code Status - Full Code 11/08/2022: Discussed with patient's mother and aunt and updated them with patient's condition and plan of care. I did tell them that the patient is still wheezing, switched her ventilator setting to a different mode, continue bronchodilators and steroids. The mother stated that the patient has been having some issues at home with her have , she is homeless and lives at different places has been noncompliant with her medications and her healthcare. She also stated that once he is off the ventilator she will pull out her IV lines and will leave AMA and is an elopement risk 11/06 Dr Braxton spoke to and updated patient's mother at bedside answered all questions. She appears frustrated that the patient despite having severe COPD does not quit smoking. She was unaware that she was still using drugs. She admitted the patient is a noncompliant patient and once he is awake and off the ventilator she may leave AMA Total Critical Care Time - 36 minutes Due to a high probability of clinically significant, life threatening deterioration, the patient required my highest level of preparedness to intervene emergently and I personally spent this critical care time directly and personally managing the patient. This critical care time included obtaining a history; examining the patient; pulse oximetry; ordering and review of studies; arranging urgent treatment with development of a management plan; evaluation of patient's response to treatment; frequent reassessment; and discussions with other providers. It was exclusive of separately billable procedures and treating other patients and teaching time. Please see Assessment and Plan section and the rest of the note for further information on patient assessment and treatment Subjective Date/time seen: 11/08/22 13:44 Interval history: 47-year-old female with history of COPD, and methamphetamine presented to the ED on 11/05 with respiratory distress and increased work of breathing, requiring intubation in the ER. 11/08/2022: Seen and examined the ICU, remains intubated on CMV mode of ventilation, peep of 5, 30% FiO2 with a pH of 7.26, pCO2 of 59, PO2 of 74, HC03 26, 92% O2 sats on 30% FiO2. -patient is sedated with fentanyl and propofol infusion, patient does open her eyes and moves all extremities spontaneously. Urine output has been adequate, afebrile and hemodynamically stable. Tolerating tube fee
[2022-11-08 16:39] LABS: Glucose Point of Care 135 mg/dl (65-105)
--- NOTE | 2022-11-08 17:36 | PM.IMPN ---
Progress Note: A&P Assessment and Plan (1) Acute respiratory failure: Qualifiers: Respiratory failure complication: hypoxia and hypercapnia Qualified Code(s): J96.01 - Acute respiratory failure with hypoxia; J96.02 - Acute respiratory failure with hypercapnia; J96.02 - Acute respiratory failure with hypercapnia Code(s): J96.00 - Acute respiratory failure, unspecified whether with hypoxia or hypercapnia Status: Acute (2) Tobacco abuse: Code(s): Z72.0 - Tobacco use Status: Acute (3) Gastroesophageal reflux disease: Qualifiers: Esophagitis presence: esophagitis presence not specified Qualified Code(s): K21.9 - Gastro-esophageal reflux disease without esophagitis Code(s): K21.9 - Gastro-esophageal reflux disease without esophagitis Status: Acute (4) Depression with anxiety: Code(s): F41.8 - Other specified anxiety disorders Status: Acute Plan Patient has acute hypoxic hypercapnic respiratory failure due to COPD exacerbation. Will continue the patient on scheduled methylprednisone 60 mg IV q.6. Will continue scheduled nebulizer treatments with Xopenex and Atrovent. Will place patient on empiric antibiotic therapy with Levaquin gets there was some underlying pneumonia. The patient does have severe leukocytosis but this could be due to infectious process versus acute stress reaction. Blood cultures are pending. Continue IV fluid hydration. Patient has been placed on Protonix for stress ulcer prophylaxis specially in the setting with patient has had a perforated ulcer in the past. The patient was is synchronous with the vent and speaking high pressures. I wanted to give patient rocuronium. Nursing staff wanted to try to decrease the patient's ventilator rate. ABG had not yet returned. He gave the okay to decrease patient's ventilator rate with pro visions regarding patient's ABG. If the patient's hypercapnia has not improved the patient will need to be placed on paralytic and tidal volume and or ventilator rate increased. Patient will need tobacco cessation education prior to discharge Will continue patient's home sertraline through G-tube. Will hold the patient's home antihypertensives as the patient's blood pressure is currently at the lower end of normal due to sedation efforts. 11/08/2022 interval history: 47-year-old female with history of COPD, and methamphetamine now in exacerbation and on ventilator being treated with methylprednisone and bronchodilator, today patient was given trial to wean of the ventilator patient failed, patient seen by cold meat cook and appreciate. Subjective Date/time seen: 11/08/22 17:36 Interval history: Shortness of breath Narrative: 47-year-old female with a past medical history of COPD, methamphetamine abuse hypertension and anxiety who presented to the ER via EMS due to shortness of breath.? The patient had been seen in the ER on the for shortness of breath and was in acute respiratory acidosis that the time the patient left against medical advice because she did not want to be placed on BiPAP.? Per ER records and the patient's boyfriend's report the patient had been feeling more short of breath for a couple of days but acutely worsened today.? The patient was evidently still telling the boyfriend not to call EMS but he was so concerned that he still called EMS.? When they arrived on scene the patient was satting 80% on room air.? She was placed on 4 L nasal cannula.? She was extremely restless with increased work of breathing and tripoding.? The patient acutely decompensated in the ER.? They were unable to get ABG prior to her decompensation and she was intubated by the ER provider.? Post intubation the patient was alarming high peak pressures.? The amount of alarms with peak pressures improved after patient was adequately sedated.? Initially sedation was on fentanyl and Versed.? On evaluating the patient in the ER the patient was
[2022-11-09] VITALS (42 sets, daily range): BP systolic 109–142; BP diastolic 62–93; PULSE 66–100; RESP 9–18; TEMP 36.4–37.1; O2SAT 84–100
[2022-11-09 00:19] LABS: Glucose Point of Care 123 mg/dl (65-105)
[2022-11-09] MEDS: methylPREDNISolone SOD SUCC 125 MG VIAL 60 MG IV PUSH ×4 (00:40→17:17)
[2022-11-09] MEDS: IPRATROPIUM BR 0.02% INH SOLN 0.5 MG/2.5 ML VIAL INHALATION ×4 (02:23→20:05)
[2022-11-09] MEDS: LEVALBUTEROL NEB 1.25 MG/3 ML INHALATION ×4 (02:23→20:05)
[2022-11-09] MEDS: FENTANYL 2,500MCG/NS250ML(*CRX 2,500 MCG/250 ML BAG 20 MCG IV CONT ×2 (04:36→17:15)
[2022-11-09 04:42] LABS: Hematocrit 40.9 % (37.0-47.0); Hemoglobin 12.5 g/dL (12.0-15.0); Mean Corpuscular HGB Conc 30.6 g/dl (32-36); Mean Corpuscular Hemoglobin 29.7 pg (26-34); Mean Corpuscular Volume 97.1 fl (80-100); Mean Platelet Volume 10.1 fl (7.4-10.4); Platelet Count Result 288 k/mm3 (150-375); Red Blood Count 4.21 M/mm3 (4.2-5.4); Red Cell Distribution Width 16.4 % (11.5-14.5); White Blood Count 19.4 K/mm3 (4.5-10.0)
[2022-11-09 05:01] LABS: Alanine Aminotransferase 37 U/L (6-35); Albumin Level 3.8 g/dL (3.5-5.1); Alkaline Phosphatase 48 U/L (38-126); Anion Gap 2 mmol/L (8-16); Aspartate Amino Transferase 34 U/L (14-36); Bilirubin,Total 0.6 mg/dL (0.2-1.3); Blood Urea Nitrogen 34 mg/dL (7-17); Calcium 8.6 mg/dL (8.4-10.2); Carbon Dioxide 34 mmol/L (22-30); Chloride 105 mmol/L (98-107); Estimated CRCL calculation 118 ml/min; Estimated Glomerular Filt Rate > 60; Glucose 136 mg/dL (65-110); Magnesium 2.7 mg/dL (1.6-2.3); Potassium 5.3 mmol/L (3.4-5.0); Sodium 141 mmol/L (137-145)
[2022-11-09 05:27] LABS: Alveolar/Arterial O2 Gradient < 0.0 mmHg; Base Excess ABG 4.9 mEq/l (+/-2.0); Carboxyhemoglobin 0.3 % THb (0-2.0); HCO3 ABG 32.5 mEq/l (22.0-26.0); Methemoglobin ABG 0.3 %THb (0-1.5); Oxygen Content ABG 19.2 %vol (16.0-22.0); Oxygen Saturation ABG 99.8 % (95.0-100.0); Oxyhemoglobin 98.7 % THb (90.0-100.0); PO2 ABG 472.9 mmHg (80.0-100.0); PO2 FiO2 Ratio Arterial Blood > 0.00 %; Reduced Hemoglobin 0.7 %THb (0-5.0); Total Hemoglobin 12.9 g/dL (12.0-18.0); pH ABG 7.334 (7.350-7.450)
[2022-11-09 05:29] LABS: Arterial Blood Gas Vent Mode ASV; Device VENTILATOR; Modified Allen's Test Pass; PCO2 ABG 62.5 mmHg (35.0-45.0); Site Drawn RIGHT RADIAL
[2022-11-09 05:30] LABS: Arterial Blood Gas Minute Volume 5.8 LPM; Arterial Blood Gas PEEP 0 cmH2O; Fractional Inspired Oxygen 100 %
[2022-11-09] MEDS: PROPOFOL IV EMULSION 100 ML 24.78 MG IV CONT (05:40)
[2022-11-09 06:19] LABS: Glucose Point of Care 142 mg/dl (65-105)
--- NOTE | 2022-11-09 06:56 | PC.NURSE ---
[address] Justice of erratic behavior; sitting straight up in bed attempting to reach ETTube. Mouthing words around ETTube and furiously pointing at this RN. Orders received.
[2022-11-09] MEDS: ALBUTEROL SULFATE NEB 2.5 MG/3 ML INH 10 MG INHALATION (08:22)
[2022-11-09] MEDS: ATORVASTATIN 20 MG TABLET PO (08:27)
[2022-11-09] MEDS: ENOXAPARIN 40 MG/0.4 ML SYRINGE SUB-Q (08:27)
[2022-11-09] MEDS: PANTOPRAZOLE SODIUM IV 40 MG VIAL IV PUSH (08:27)
[2022-11-09] MEDS: SODIUM POLYSTYRENE SULFONONATE 15 GM/60 ML BTL 30 GM PO (08:28)
[2022-11-09] MEDS: INSULIN HUMAN REGULAR (*BKC) 100 UNITS/ML 10 UNITS IV PUSH (08:28)
[2022-11-09] MEDS: DEXTROSE 50% 25 GM/50 ML SYRINGE IV PUSH (08:28)
[2022-11-09] MEDS: MINERAL OIL/WHITE PETROLATUM OINTMENT 1 APPLIC EACH EYE ×2 (08:28→22:19)
[2022-11-09] MEDS: polyethylene glycoL 3350 17 GM POWD.PACK PO (08:29)
[2022-11-09] MEDS: SODIUM ZIRCONIUM CYCLOSILICATE 10 GM POWD.PACK PO (09:30)
[2022-11-09] MEDS: PROPOFOL IV EMULSION 100 ML 23.88 MG IV CONT ×4 (10:07→22:18)
[2022-11-09 10:09] LABS: Anion Gap 4 mmol/L (8-16); Blood Urea Nitrogen 29 mg/dL (7-17); Calcium 8.2 mg/dL (8.4-10.2); Carbon Dioxide 30 mmol/L (22-30); Chloride 104 mmol/L (98-107); Estimated CRCL calculation 118 ml/min; Estimated Glomerular Filt Rate > 60; Glucose 102 mg/dL (65-110); Sodium 138 mmol/L (137-145)
--- NOTE | 2022-11-09 11:57 | WPDINTPN ---
Progress Note: A&P Assessment and Plan (1) Acute respiratory failure: Code(s): J96.00 - Acute respiratory failure, unspecified whether with hypoxia or hypercapnia Status: Acute Assessment and Plan: Acute respiratory failure secondary to COPD exacerbation 11/05/2022: Patient intubated in the ER -currently on ASV mode of ventilation with low respiratory rate and low minute ventilation. Patient has been switched to CMV mode of ventilation with improvement in her peak airway pressures -continue propofol and fentanyl for sedation -Continue bronchodilators -Continue Solu-Medrol, will start weaning Discontinued ceftriaxone on 11/08 -11/06 Blood cultures-preliminary report with no growth to date - procalcitonin level was very low suggesting a systemic infection -Chest x-ray clear and does not show any pneumonia (2) Acute exacerbation of chronic obstructive pulmonary disease: Code(s): J44.1 - Chronic obstructive pulmonary disease with (acute) exacerbation Status: Acute Assessment and Plan: See above (3) Hyperkalemia: Code(s): E87.5 - Hyperkalemia Status: Acute Assessment and Plan: Patient hyperkalemic this morning, renal function is normal -will treat with insulin, D50, albuterol, Kayexalate -will start Lokelma daily Plan DVT prophylaxis -Lovenox Stress ulcer prophylaxis -Protonix Nutrition -continue Tube Feeds, added senna S and MiraLax Code Status - Full Code 11/08/2022: Discussed with patient's mother and aunt and updated them with patient's condition and plan of care. I did tell them that the patient is still wheezing, switched her ventilator setting to a different mode, continue bronchodilators and steroids. The mother stated that the patient has been having some issues at home with her have , she is homeless and lives at different places has been noncompliant with her medications and her healthcare. She also stated that once he is off the ventilator she will pull out her IV lines and will leave AMA and is an elopement risk 11/06 Dr Braxton spoke to and updated patient's mother at bedside answered all questions. She appears frustrated that the patient despite having severe COPD does not quit smoking. She was unaware that she was still using drugs. She admitted the patient is a noncompliant patient and once he is awake and off the ventilator she may leave AMA Total Critical Care Time - 36 minutes Due to a high probability of clinically significant, life threatening deterioration, the patient required my highest level of preparedness to intervene emergently and I personally spent this critical care time directly and personally managing the patient. This critical care time included obtaining a history; examining the patient; pulse oximetry; ordering and review of studies; arranging urgent treatment with development of a management plan; evaluation of patient's response to treatment; frequent reassessment; and discussions with other providers. It was exclusive of separately billable procedures and treating other patients and teaching time. Please see Assessment and Plan section and the rest of the note for further information on patient assessment and treatment Subjective Date/time seen: 11/09/22 11:57 Interval history: 47-year-old female with history of COPD, and methamphetamine presented to the ED on 11/05 with respiratory distress and increased work of breathing, requiring intubation in the ER. 11/09/2022: Patient seen and examined the ICU, remains intubated on ASV mode of ventilation, peep of 0 and 35% FiO2. Afebrile, hemodynamically stable, adequate urine output. Patient is on fentanyl and propofol infusion for sedation. Does move all extremities spontaneously but does not open her eyes or follow simple commands. Review of Systems Review of Systems: ROS unobtainable: Yes unobtainable due to endotracheal tube, unobtainable due to medical condi
--- NOTE | 2022-11-09 11:57 | PCFNICU ---
ICU Rounding Note: Pt current nutrition is Vital 1.2@ 35ml/hr to provide 924 + 630kcals propofol = 1554 kcals per day, 58g protein. Add prosource modular for an additional 80kcals, 20g protein. Totals 1634 kcals, 78g protein. Nutrition recommendation: Continue current tube feeding orders and supplement. Agree with orders. Last recorded weight is 79.6 kg. Bowel Motility: No BMs charted. Labs Reviewed: K+ 5.3, BUN 34, Cre 0.5, Glu 142, Mag 2.7 Meds Noted: Propofol, fentanyl, Skin: WNL Additional Notes: Tolerating tube feeds. Not had a bowel movement, Miralax added. *Est needs: 1575 BOAZ state, 72-83g protein (1.2-1.6g/kg IBW) Following daily in ICU rounds. Monitor daily in ICU rounds. Reassess every Monday and Monday.
[2022-11-09 11:59] LABS: Glucose Point of Care 107 mg/dl (65-105)
[2022-11-09 16:53] LABS: Glucose Point of Care 151 mg/dl (65-105)
[2022-11-09] MEDS: MIDAZOLAM HCL (*CRX) 2 MG/2 ML VIAL IV PUSH (20:50)
[2022-11-10] VITALS (57 sets, daily range): BP systolic 113–152; BP diastolic 47–104; PULSE 60–108; RESP 11–25; TEMP 36.6–37.3; O2SAT 84–100
[2022-11-10] MEDS: methylPREDNISolone SOD SUCC 125 MG VIAL 60 MG IV PUSH ×2 (00:27→05:31)
[2022-11-10 00:50] LABS: Glucose Point of Care 144 mg/dl (65-105)
[2022-11-10] MEDS: PROPOFOL IV EMULSION 100 ML 23.88 MG IV CONT ×2 (01:43→05:28)
[2022-11-10] MEDS: LEVALBUTEROL NEB 1.25 MG/3 ML INHALATION ×4 (02:00→19:40)
[2022-11-10] MEDS: IPRATROPIUM BR 0.02% INH SOLN 0.5 MG/2.5 ML VIAL INHALATION ×4 (02:00→19:39)
[2022-11-10] MEDS: MIDAZOLAM HCL (*CRX) 2 MG/2 ML VIAL IV PUSH ×2 (02:55→06:16)
[2022-11-10 03:10] LABS: Hematocrit 37.4 % (37.0-47.0); Hemoglobin 11.3 g/dL (12.0-15.0); Mean Corpuscular HGB Conc 30.2 g/dl (32-36); Mean Corpuscular Volume 96.1 fl (80-100); Platelet Count Result 253 k/mm3 (150-375); Red Blood Count 3.89 M/mm3 (4.2-5.4); Red Cell Distribution Width 16.1 % (11.5-14.5); White Blood Count 11.5 K/mm3 (4.5-10.0)
[2022-11-10 03:29] LABS: Alanine Aminotransferase 36 U/L (6-35); Albumin Level 3.1 g/dL (3.5-5.1); Alkaline Phosphatase 52 U/L (38-126); Anion Gap -1 mmol/L (8-16); Aspartate Amino Transferase 25 U/L (14-36); Bilirubin,Total 0.4 mg/dL (0.2-1.3); Blood Urea Nitrogen 29 mg/dL (7-17); Calcium 8.1 mg/dL (8.4-10.2); Carbon Dioxide 37 mmol/L (22-30); Chloride 102 mmol/L (98-107); Estimated CRCL calculation 118 ml/min; Estimated Glomerular Filt Rate > 60; Glucose 123 mg/dL (65-110); Magnesium 2.3 mg/dL (1.6-2.3); Phosphorus 3.5 mg/dL (2.5-4.5); Potassium 4.4 mmol/L (3.4-5.0); Sodium 138 mmol/L (137-145); Triglycerides 104 mg/dL (<150)
[2022-11-10 05:55] LABS: Glucose Point of Care 114 mg/dl (65-105)
[2022-11-10 06:27] LABS: Alveolar/Arterial O2 Gradient 72.8 mmHg; Base Excess ABG 10.2 mEq/l (+/-2.0); Carboxyhemoglobin 0.3 % THb (0-2.0); Fractional Inspired Oxygen 30 %; Methemoglobin ABG 0.2 %THb (0-1.5); Oxygen Content ABG 16.6 %vol (16.0-22.0); Oxygen Saturation ABG 93.9 % (95.0-100.0); Oxyhemoglobin 92.6 % THb (90.0-100.0); PCO2 ABG 59.8 mmHg (35.0-45.0); PO2 ABG 70.8 mmHg (80.0-100.0); PO2 FiO2 Ratio Arterial Blood 2.36 %; Reduced Hemoglobin 6.9 %THb (0-5.0); Total Hemoglobin 12.7 g/dL (12.0-18.0); pH ABG 7.409 (7.350-7.450)
[2022-11-10 06:29] LABS: Arterial Blood Gas Vent Mode CMV; Arterial Blood Gas Ventilator rate 16 /MIN; Device VENTILATOR; Modified Allen's Test Pass; Site Drawn RIGHT RADIAL
[2022-11-10 06:30] LABS: Arterial Blood Gas PEEP 0 cmH2O; Arterial Blood Gas Tidal Volume 500 ml
[2022-11-10] MEDS: FENTANYL 2,500MCG/NS250ML(*CRX 2,500 MCG/250 ML BAG 20 MCG IV CONT (06:48)
[2022-11-10] MEDS: ATORVASTATIN 20 MG TABLET PO (08:17)
[2022-11-10] MEDS: PANTOPRAZOLE SODIUM IV 40 MG VIAL IV PUSH (08:18)
[2022-11-10] MEDS: polyethylene glycoL 3350 17 GM POWD.PACK PO (08:18)
[2022-11-10] MEDS: MINERAL OIL/WHITE PETROLATUM OINTMENT 1 APPLIC EACH EYE (08:18)
[2022-11-10] MEDS: ENOXAPARIN 40 MG/0.4 ML SYRINGE SUB-Q (08:18)
[2022-11-10] MEDS: dexmedeTOMIDine 400 MCG/100 ML 400 MCG/100 ML BAG 8.22 MCG IV CONT ×2 (09:14→21:24)
[2022-11-10] MEDS: PROPOFOL IV EMULSION 100 ML 22.19 MG IV CONT (09:20)
--- NOTE | 2022-11-10 11:24 | PCFNICU ---
ICU Rounding Note: Pt current nutrition is Vital 1.2 @ 35 ml/h with Prosource 1x per day. Total 924 kcals, 58 g protein, 624 ml/free water. Nutrition recommendation: If propofol is to remain off, Increase TF goal rate to 50 ml/h with Prosource protein modular 1x per day to better meet protein energy needs (1455 kcals, 102.5 g protein, 892 ml free water. Last recorded weight is 82.2 kg. Bowel Motility: No BMs charted Labs Reviewed: Hgb 11.3, Alb 3.1, BUN 29, Cre 0.5 Meds Noted: Versed, precedex, solumedrol, novolog, miralax Skin: WNL Additional Notes: EER: 20 kcal/kg= 1644 kcal/day. Protein needs 94-110 g/day. Remains on vent. Propofol is titrated off for now for trial. Hoping to trial later today and possible extubation.. If not extubated, rate needs to be increased to 50 ml/h and add Prosource BID to meet protein energy needs. Following daily in ICU rounds. Monitor daily in ICU rounds. Reassess every Monday and Monday.
--- NOTE | 2022-11-10 11:51 | PM.IMPN ---
Progress Note: A&P Assessment and Plan (1) Acute respiratory failure: Code(s): J96.00 - Acute respiratory failure, unspecified whether with hypoxia or hypercapnia Status: Acute Assessment and Plan: Vent managed per ICU. (2) Acute exacerbation of chronic obstructive pulmonary disease: Code(s): J44.1 - Chronic obstructive pulmonary disease with (acute) exacerbation Status: Acute Assessment and Plan: See above (3) Hyperkalemia: Code(s): E87.5 - Hyperkalemia Status: Acute Assessment and Plan: Monitor. Subjective Date/time seen: 11/10/22 11:51 Interval history: Intubated Exam Narrative: General: Pt is sedated, intubated and on mechanical ventilation Lungs/Chest: Trachea central Coarse BS B/L, no wheezing this morning Cardiac: RRR. Normal S1 S2. No murmurs Circulation: Pedal pulses are intact and symmetrical. Abdomen: Decreased bowel sounds. Obese. Soft. NT. ND. Extremities: No clubbing, cyanosis or edema. Warm : Trevino in place Neurologic: Unable to assess due to sedation. Patient does move all her extremities spontaneously, does not open her eyes or follow simple commands. Pupils equal and reactive Skin: Several tattoos all over body Objective Data Vital Signs Vital Signs: Vital Signs - 24 hr 11/09/22 12:00 11/09/22 12:00 11/09/22 12:00 Temperature 98.4 F Pulse Rate 77 78 Respiratory Rate 16 Blood Pressure 111/78 Pulse Oximetry 98 95 96 Oxygen Delivery Mechanical Ventilation Mechanical Ventilation Fraction of Inspired Oxygen 30 35 11/09/22 12:00 11/09/22 12:34 11/09/22 12:34 Temperature Pulse Rate 77 77 Respiratory Rate 16 16 Blood Pressure Pulse Oximetry Oxygen Delivery Fraction of Inspired Oxygen 35 11/09/22 12:00 11/09/22 14:09 11/09/22 14:09 Temperature Pulse Rate 79 84 84 Respiratory Rate 16 16 Blood Pressure Pulse Oximetry Oxygen Delivery Fraction of Inspired Oxygen 11/09/22 14:00 11/09/22 14:23 11/09/22 14:28 Temperature Pulse Rate 85 84 95 Respiratory Rate 16 Blood Pressure Pulse Oximetry 84 L Oxygen Delivery Mechanical Ventilation Fraction of Inspired Oxygen 30 11/09/22 14:30 11/09/22 14:09 11/09/22 16:45 Temperature Pulse Rate 83 84 74 Respiratory Rate 16 16 16 Blood Pressure Pulse Oximetry Oxygen Delivery Fraction of Inspired Oxygen 11/09/22 16:45 11/09/22 16:00 11/09/22 16:00 Temperature Pulse Rate 74 Respiratory Rate 16 Blood Pressure Pulse Oximetry 95 Oxygen Delivery Mechanical Ventilation Fraction of Inspired Oxygen 35 30 11/09/22 16:00 11/09/22 16:00 11/09/22 17:06 Temperature 98.1 F Pulse Rate 74 80 82 Respiratory Rate 16 16 Blood Pressure 142/93 H Pulse Oximetry 91 Oxygen Delivery Fraction of Inspired Oxygen 11/09/22 17:15 11/09/22 17:33 11/09/22 18:00 Temperature Pulse Rate 82 81 88 Respiratory Rate 16 16 Blood Pressure Pulse Oximetry 92 Oxygen Delivery Mechanical Ventilation Fraction of Inspired Oxygen 30 11/09/22 18:00 11/09/22 18:00 11/09/22 20:05 Temperature Pulse Rate 74 87 71 Respiratory Rate 17 16 Blood Pressure 139/91 H Pulse Oximetry 95 Oxygen Delivery Fraction of Inspired Oxygen 11/09/22 20:10 11/09/22 20:12 11/09/22 20:00 Temperature Pulse Rate 72 70 Respiratory Rate 16 Blood Pressure Pulse Oximetry 95 Oxygen Delivery Mechanical Ventilation Fraction of Inspired Oxygen 30 30 11/09/22 20:00 11/09/22 20:00 11/09/22 20:00 Temperature 98.8 F Pulse Rate 72 72 72 Respiratory Rate 16 16 Blood Pressure 114/76 Pulse Oximetry 95 95 Oxygen Delivery Mechanical Ventilation Fraction of Inspired Oxygen 30 11/09/22 22:00 11/09/22 22:00 11/09/22 22:12 Temperature 98.7 F Pulse Rate 67 67 67 Respiratory Rate 16 16 Blood Pressure 116/62 Pulse Oximetry 95 Oxygen Delivery F
[2022-11-10 12:02] LABS: Glucose Point of Care 142 mg/dl (65-105)
[2022-11-10 13:13] LABS: Alveolar/Arterial O2 Gradient 109.6 mmHg; Base Excess ABG 9.6 mEq/l (+/-2.0); Device VENTILATOR; Fractional Inspired Oxygen 35 %; HCO3 ABG 35.7 mEq/l (22.0-26.0); Modified Allen's Test Pass; Oxygen Content ABG 17.9 %vol (16.0-22.0); Oxygen Saturation ABG 95.4 % (95.0-100.0); Oxyhemoglobin 94.1 % THb (90.0-100.0); PCO2 ABG 54.8 mmHg (35.0-45.0); PO2 ABG 76.2 mmHg (80.0-100.0); PO2 FiO2 Ratio Arterial Blood 2.18 %; Site Drawn RIGHT RADIAL; Total Hemoglobin 13.5 g/dL (12.0-18.0); pH ABG 7.432 (7.350-7.450)
[2022-11-10 13:14] LABS: Arterial Blood Gas PEEP 5 cmH2O; Arterial Blood Gas Pressure Support 8 cmH2O; Arterial Blood Gas Vent Mode SPONTANEOUS
[2022-11-10] MEDS: methylPREDNISolone SOD SUCC 40 MG VIAL IV PUSH ×2 (14:32→21:29)
--- NOTE | 2022-11-10 14:53 | WPDINTPN ---
Progress Note: A&P Assessment and Plan (1) Acute respiratory failure: Code(s): J96.00 - Acute respiratory failure, unspecified whether with hypoxia or hypercapnia Status: Acute Assessment and Plan: Acute respiratory failure secondary to COPD exacerbation 11/05/2022: Patient intubated in the ER -she is on CMV mode of ventilation, peep of 0 and 35% FiO2 -ABGs and chest x-ray reviewed -chest x-ray this morning shows clear lungs -patient has been weaned of propofol and fentanyl and started on Precedex infusion -place patient on SBT and evaluate for extubation -Continue bronchodilators -weaning Solu-Medrol Discontinued ceftriaxone on 11/08 -11/06 Blood cultures-preliminary report with no growth to date - procalcitonin level was very low suggesting a systemic infection -Chest x-ray clear and does not show any pneumonia (2) Acute exacerbation of chronic obstructive pulmonary disease: Code(s): J44.1 - Chronic obstructive pulmonary disease with (acute) exacerbation Status: Acute Assessment and Plan: Continue mechanical ventilation, steroids, bronchodilators (3) Hyperkalemia: Code(s): E87.5 - Hyperkalemia Status: Acute Assessment and Plan: Patient hyperkalemic this morning, renal function is normal -hyperkalemia is resolved -continue Lokelma Plan DVT prophylaxis -Lovenox Stress ulcer prophylaxis -Protonix Nutrition -hold tube feeds for possible extubation Code Status - Full Code 11/08/2022: Discussed with patient's mother and aunt and updated them with patient's condition and plan of care. I did tell them that the patient is still wheezing, switched her ventilator setting to a different mode, continue bronchodilators and steroids. The mother stated that the patient has been having some issues at home with her have , she is homeless and lives at different places has been noncompliant with her medications and her healthcare. She also stated that once he is off the ventilator she will pull out her IV lines and will leave AMA and is an elopement risk 11/06 Dr Braxton spoke to and updated patient's mother at bedside answered all questions. She appears frustrated that the patient despite having severe COPD does not quit smoking. She was unaware that she was still using drugs. She admitted the patient is a noncompliant patient and once he is awake and off the ventilator she may leave AMA Total Critical Care Time - 36 minutes Due to a high probability of clinically significant, life threatening deterioration, the patient required my highest level of preparedness to intervene emergently and I personally spent this critical care time directly and personally managing the patient. This critical care time included obtaining a history; examining the patient; pulse oximetry; ordering and review of studies; arranging urgent treatment with development of a management plan; evaluation of patient's response to treatment; frequent reassessment; and discussions with other providers. It was exclusive of separately billable procedures and treating other patients and teaching time. Please see Assessment and Plan section and the rest of the note for further information on patient assessment and treatment Subjective Date/time seen: 11/10/22 14:53 Interval history: 47-year-old female with history of COPD, and methamphetamine presented to the ED on 11/05 with respiratory distress and increased work of breathing, requiring intubation in the ER. 11/10/2022: Patient seen examined the ICU, remains intubated on CMV mode of ventilation, peep of 0 on 35% FiO2. Patient is afebrile, hemodynamically stable with adequate urine output, patient was placed on Precedex infusion, nods to questions and follows simple commands, Moves all extremities spontaneously She is on her menstrual cycle. Tolerating tube feeds, no issues overnight . Review of Systems Review of Systems: ROS unobtainabl
[2022-11-10 17:55] LABS: Glucose Point of Care 136 mg/dl (65-105)
[2022-11-11] VITALS (17 sets, daily range): BP systolic 128–164; BP diastolic 88–106; PULSE 62–107; RESP 14–18; TEMP 36.6–36.9; O2SAT 91–98
[2022-11-11] MEDS: IPRATROPIUM BR 0.02% INH SOLN 0.5 MG/2.5 ML VIAL INHALATION ×4 (02:26→20:49)
[2022-11-11] MEDS: LEVALBUTEROL NEB 1.25 MG/3 ML INHALATION ×4 (02:26→20:49)
[2022-11-11 04:41] LABS: Hematocrit 40.6 % (37.0-47.0); Hemoglobin 13.1 g/dL (12.0-15.0); Mean Corpuscular HGB Conc 32.3 g/dl (32-36); Mean Corpuscular Hemoglobin 30.2 pg (26-34); Mean Corpuscular Volume 93.5 fl (80-100); Mean Platelet Volume 9.6 fl (7.4-10.4); Platelet Count Result 255 k/mm3 (150-375); Red Blood Count 4.34 M/mm3 (4.2-5.4); Red Cell Distribution Width 14.9 % (11.5-14.5); White Blood Count 13.1 K/mm3 (4.5-10.0)
[2022-11-11 04:51] LABS: Alanine Aminotransferase 56 U/L (6-35); Albumin Level 3.2 g/dL (3.5-5.1); Alkaline Phosphatase 63 U/L (38-126); Anion Gap 0 mmol/L (8-16); Aspartate Amino Transferase 24 U/L (14-36); Bilirubin,Total 0.7 mg/dL (0.2-1.3); Blood Urea Nitrogen 27 mg/dL (7-17); Calcium 8.4 mg/dL (8.4-10.2); Carbon Dioxide 37 mmol/L (22-30); Chloride 99 mmol/L (98-107); Estimated CRCL calculation 120 ml/min; Estimated Glomerular Filt Rate > 60; Glucose 121 mg/dL (65-110); Magnesium 1.9 mg/dL (1.6-2.3); Phosphorus 4.2 mg/dL (2.5-4.5); Potassium 4.4 mmol/L (3.4-5.0); Sodium 136 mmol/L (137-145)
[2022-11-11] MEDS: methylPREDNISolone SOD SUCC 40 MG VIAL IV PUSH (06:16)
[2022-11-11] MEDS: ATORVASTATIN 20 MG TABLET PO (08:44)
[2022-11-11] MEDS: ENOXAPARIN 40 MG/0.4 ML SYRINGE SUB-Q (08:44)
[2022-11-11] MEDS: PANTOPRAZOLE SODIUM IV 40 MG VIAL IV PUSH (08:45)
[2022-11-11] MEDS: polyethylene glycoL 3350 17 GM POWD.PACK PO (08:46)
--- NOTE | 2022-11-11 09:18 | WPDINTPN ---
Progress Note: A&P Assessment and Plan (1) Acute respiratory failure: Code(s): J96.00 - Acute respiratory failure, unspecified whether with hypoxia or hypercapnia Status: Acute Assessment and Plan: Acute respiratory failure secondary to COPD exacerbation 11/05/2022: Patient intubated in the ER -11/10: Extubated -currently on 2 L nasal cannula with adequate O2 sats -chest x-ray this morning shows clear lungs -Continue bronchodilators -weaning Solu-Medrol Discontinued ceftriaxone on 11/08 -11/06 Blood cultures-preliminary report with no growth to date - procalcitonin level was very low suggesting a systemic infection -Chest x-ray clear and does not show any pneumonia (2) Acute exacerbation of chronic obstructive pulmonary disease: Code(s): J44.1 - Chronic obstructive pulmonary disease with (acute) exacerbation Status: Acute Assessment and Plan: Continue steroids and bronchodilators (3) Hyperkalemia: Code(s): E87.5 - Hyperkalemia Status: Acute Assessment and Plan: Patient hyperkalemic this morning, renal function is normal -hyperkalemia is resolved -continue Lokelma Plan DVT prophylaxis -Lovenox Stress ulcer prophylaxis -Protonix Nutrition -bedside speech evaluation for swallow test Code Status - Full Code Total Critical Care Time - 32 minutes 11/08/2022: Discussed with patient's mother and aunt and updated them with patient's condition and plan of care. I did tell them that the patient is still wheezing, switched her ventilator setting to a different mode, continue bronchodilators and steroids. The mother stated that the patient has been having some issues at home with her have , she is homeless and lives at different places has been noncompliant with her medications and her healthcare. She also stated that once he is off the ventilator she will pull out her IV lines and will leave AMA and is an elopement risk 11/06 Dr Braxton spoke to and updated patient's mother at bedside answered all questions. She appears frustrated that the patient despite having severe COPD does not quit smoking. She was unaware that she was still using drugs. She admitted the patient is a noncompliant patient and once he is awake and off the ventilator she may leave AMA Due to a high probability of clinically significant, life threatening deterioration, the patient required my highest level of preparedness to intervene emergently and I personally spent this critical care time directly and personally managing the patient. This critical care time included obtaining a history; examining the patient; pulse oximetry; ordering and review of studies; arranging urgent treatment with development of a management plan; evaluation of patient's response to treatment; frequent reassessment; and discussions with other providers. It was exclusive of separately billable procedures and treating other patients and teaching time. Please see Assessment and Plan section and the rest of the note for further information on patient assessment and treatment Subjective Date/time seen: 11/11/22 09:18 Interval history: 47-year-old female with history of COPD, and methamphetamine presented to the ED on 11/05 with respiratory distress and increased work of breathing, requiring intubation in the ER. 11/10/2022: Extubated 11/11/2022: Patient seen examined the ICU, intubated on 11/10, currently on 2 L nasal cannula with adequate O2 sats. Patient is on low-dose Precedex infusion, is calm, nods to questions, follows simple commands. Denies any shortness of breath, chest pain, nausea vomiting at this time. Adequate urine output, afebrile, hemodynamically stable. Review of Systems Review of Systems: All systems reviewed & are unremarkable except as noted in HPI and below Exam Narrative: General: Patient is awake, calm in no distress Lungs/Chest: Trachea central clear to auscultation bila
--- NOTE | 2022-11-11 09:53 | PCSTNOTE ---
Please refer to the Bedside Swallow Evaluation in the EMR. Please note, silent aspiration cannot be ruled out at bedside.
--- NOTE | 2022-11-11 10:54 | PCFNICU ---
ICU Rounding Note: Pt current nutrition is Minced & Moist level 5 diet. No intakes recorded yet. Nutrition recommendation: Advance diet as tolerated per [employer]. Add Ensure enlive TID for additional 350 kcals and 20 g protein each for additional nutrition. Last recorded weight is 77.7 kg. Bowel Motility: No BMs recorded Labs Reviewed: Alb 3.2, Na 136, BUN 27, Cre 0.5 Meds Noted: Solumedrol, lovenox, xanax, miralax, protonix Skin: WNL Additional Notes: Extubated and cleared by speech for oral intake, minced & moist level 5, advance as tolerated. Stepping down in care. Following daily in ICU rounds. Monitor daily in ICU rounds. Reassess every Monday and Monday.
--- NOTE | 2022-11-11 11:20 | PM.IMPN ---
Progress Note: A&P Assessment and Plan (1) Acute respiratory failure: Code(s): J96.00 - Acute respiratory failure, unspecified whether with hypoxia or hypercapnia Status: Acute Assessment and Plan: Continue bronchodilators, Solu-Medrol. Extubated and breathing okay on nasal cannula. (2) Acute exacerbation of chronic obstructive pulmonary disease: Code(s): J44.1 - Chronic obstructive pulmonary disease with (acute) exacerbation Status: Acute Assessment and Plan: Continue steroids and bronchodilators (3) Hyperkalemia: Code(s): E87.5 - Hyperkalemia Status: Acute Assessment and Plan: Patient hyperkalemic this morning, renal function is normal -hyperkalemia is resolved -continue Lokelma Subjective Date/time seen: 11/11/22 11:20 Interval history: No new complaints. Extubated and doing okay. Exam Narrative: General: Patient is awake, calm in no distress Lungs/Chest: Trachea central clear to auscultation bilaterally, no wheezing this morning Cardiac: RRR. Normal S1 S2. No murmurs Circulation: Pedal pulses are intact and symmetrical. Abdomen: Soft, nontender, distended, normoactive bowel sounds Extremities: No clubbing, cyanosis or edema. Warm : Trevino in place Neurologic: Patient is awake, alert, follows simple commands in all extremities, answers to questions appropriately. Pupils equal and Skin: Several tattoos all over body Objective Data Vital Signs Vital Signs: Vital Signs - 24 hr 11/10/22 11:25 11/10/22 12:00 11/10/22 12:07 Temperature 99.2 F Pulse Rate 97 91 91 Respiratory Rate 18 16 14 Blood Pressure 141/47 H Pulse Oximetry 100 Oxygen Delivery Oxygen Flow Rate Fraction of Inspired Oxygen 11/10/22 12:00 11/10/22 12:00 11/10/22 13:30 Temperature Pulse Rate Respiratory Rate Blood Pressure Pulse Oximetry 95 88 L Oxygen Delivery Mechanical Ventilation Nasal Cannula Oxygen Flow Rate 5 Fraction of Inspired Oxygen 35 35 11/10/22 13:30 11/10/22 14:00 11/10/22 14:12 Temperature Pulse Rate Respiratory Rate Blood Pressure Pulse Oximetry 98 84 L 90 Oxygen Delivery Nasal Cannula Nasal Cannula Nasal Cannula Oxygen Flow Rate 5 2 4 Fraction of Inspired Oxygen 11/10/22 13:00 11/10/22 14:33 11/10/22 12:00 Temperature Pulse Rate 94 69 76 Respiratory Rate 14 13 Blood Pressure Pulse Oximetry Oxygen Delivery Oxygen Flow Rate Fraction of Inspired Oxygen 11/10/22 14:00 11/10/22 14:00 11/10/22 15:25 Temperature Pulse Rate 66 61 71 Respiratory Rate 20 12 Blood Pressure 140/94 H Pulse Oximetry 96 Oxygen Delivery Oxygen Flow Rate Fraction of Inspired Oxygen 11/10/22 15:31 11/10/22 15:37 11/10/22 15:45 Temperature Pulse Rate 70 74 60 Respiratory Rate 12 14 13 Blood Pressure Pulse Oximetry 96 Oxygen Delivery Nasal Cannula Oxygen Flow Rate 4 Fraction of Inspired Oxygen 11/10/22 16:34 11/10/22 16:00 11/10/22 16:00 Temperature 99.0 F Pulse Rate 90 72 Respiratory Rate 18 14 Blood Pressure 151/100 H Pulse Oximetry 95 92 Oxygen Delivery Nasal Cannula Oxygen Flow Rate 4 Fraction of Inspired Oxygen 11/10/22 16:00 11/10/22 16:35 11/10/22 17:15 Temperature Pulse Rate 67 108 H 106 H Respiratory Rate 22 H 25 H Blood Pressure Pulse Oximetry Oxygen Delivery Oxygen Flow Rate Fraction of Inspired Oxygen 11/10/22 18:00 11/10/22 18:00 11/10/22 19:41 Temperature Pulse Rate 64 65 71 Respiratory Rate 13 14 Blood Pressure 150/104 H Pulse Oximetry 95 Oxygen Delivery Oxygen Flow Rate Fraction of Inspired Oxygen 11/10/22 19:42 11/10/22 20:16 11/10/22 20:00 Temperature Pulse Rate 69 74 Respiratory Rate 12 14 Blood Pressure Pulse Oximetry 95 93 Oxygen Delivery Nasal Cannula Nasal Cannula Oxygen Flow Rate 3 3 Fraction of Inspired Oxygen 11/10/22 2
[2022-11-11] MEDS: ALPRAZolam (*CRX) 0.125 MG TABLET PO ×2 (13:01→16:08)
--- NOTE | 2022-11-11 14:30 | PC.NURSE ---
This patient, Amanda Pringle, was transferred to [facility] on 11/11/22 at 1430. Personal belongings sent with patient. Report given to Carlene. Appropriate documentation sent with patient.
--- NOTE | 2022-11-11 14:34 | ADMGEN ---
This patient, Amanda Pringle, was admitted to 3 Med Surg Room 331-01 @ 1420. Patient/family oriented to hospital policies and general routines including ID bracelet, bed and alarms, visiting hours, pain management, procedures, bathroom and other care routines, personal items, smoking policy, room service/diet, and visiting hours. Information on how to activate the Rapid Response Team has been discussed. Patient/Family are encouraged to report perceived risks to care and to ask questions if they do not understand what they are told or what they should do.
[2022-11-11] MEDS: SERTRALINE HCL 25 MG TABLET PO (16:08)
[2022-11-11] MEDS: ONDANSETRON INJ 4 MG/2 ML VIAL IV PUSH (16:41)
[2022-11-11] MEDS: methylPREDNISolone SOD SUCC 40 MG VIAL 20 MG IV PUSH (21:39)
[2022-11-12 00:48] LABS: Hematocrit 41.3 % (37.0-47.0); Hemoglobin 13.7 g/dL (12.0-15.0)
[2022-11-12] MEDS: ONDANSETRON INJ 4 MG/2 ML VIAL IV PUSH ×2 (01:00→08:36)
[2022-11-12] MEDS: SERTRALINE HCL 25 MG TABLET PO ×2 (01:00→08:36)
[2022-11-12] MEDS: IPRATROPIUM BR 0.02% INH SOLN 0.5 MG/2.5 ML VIAL INHALATION (02:57)
[2022-11-12] MEDS: LEVALBUTEROL NEB 1.25 MG/3 ML INHALATION (02:57)
[2022-11-12 02:59] VITALS: PULSE 89; RESP 16
[2022-11-12 06:20] VITALS: BP 145/97; PULSE 82; RESP 20; TEMP 35.9; O2SAT 99
[2022-11-12] MEDS: ATORVASTATIN 20 MG TABLET PO (08:36)
[2022-11-12] MEDS: methylPREDNISolone SOD SUCC 40 MG VIAL 20 MG IV PUSH (08:36)
[2022-11-12] MEDS: PANTOPRAZOLE SODIUM IV 40 MG VIAL IV PUSH (08:36)
[2022-11-12] MEDS: ALPRAZolam (*CRX) 0.125 MG TABLET PO (08:36)
[2022-11-12] MEDS: ENOXAPARIN 40 MG/0.4 ML SYRINGE SUB-Q (08:37)
--- NOTE | 2022-11-12 11:39 | PM.DS ---
DS: Admitting Diagnosis Discharge Date November 12, 2022 Admitting Diagnosis Respiratory failure DS: Discharge Diagnosis Discharge Diagnosis (1) Acute respiratory failure: Code(s): J96.00 - Acute respiratory failure, unspecified whether with hypoxia or hypercapnia Status: Acute Assessment and Plan: Continue bronchodilators, Solu-Medrol. Extubated and breathing okay on nasal cannula. (2) Acute exacerbation of chronic obstructive pulmonary disease: Code(s): J44.1 - Chronic obstructive pulmonary disease with (acute) exacerbation Status: Acute Assessment and Plan: Continue steroids and bronchodilators (3) Hyperkalemia: Code(s): E87.5 - Hyperkalemia Status: Acute Assessment and Plan: Patient hyperkalemic this morning, renal function is normal -hyperkalemia is resolved -continue Lokelma DS: Summary Hospital Course Hospital Course: Admitted for COPD exacerbation. Patient will be discharged on prednisone. Otherwise she will continue her home medications and can follow up with primary care doctor as needed. Time Spent with Patient Time attestation: Total time spent providing and/or coordinating discharge services: Exam Narrative: General: Patient is awake, calm in no distress Lungs/Chest: Trachea central clear to auscultation bilaterally, no wheezing this morning Cardiac: RRR. Normal S1 S2. No murmurs Circulation: Pedal pulses are intact and symmetrical. Abdomen: Soft, nontender, distended, normoactive bowel sounds Extremities: No clubbing, cyanosis or edema. Warm : Trevino in place Neurologic: Patient is awake, alert, follows simple commands in all extremities, answers to questions appropriately. Pupils equal and Skin: Several tattoos all over body DS: Data Data Completed and Pending Labs on day of discharge: Labs from last 24 hours 11/12/22 00:43 Hgb 13.7 Hct 41.3 Discharge Plan Discharge Attending physician on discharge: Rip Rader Discharging Clinician: Rip Rader Patient Disposition: Home, Self-Care Activity: no preference Diet: as tolerated Patient Instructions: Antibiotic Form, How to Stop Smoking (DC), Pain Management (DC), COPD (Chronic Obstructive Pulmonary Disease) (DC), Methamphetamine Use Disorder (DC) Stand Alone Forms: General Discharge Information Follow-up/Referrals: Sachin,ANA Abraham [Primary Care Provider] - Discharge Medications: Continued ferrous sulfate [FeroSul] 325 mg (65 mg iron) tablet 325 mg PO TID sertraline 25 mg Tablet 25 mg PO DAILY PRN (Reason: Anxiety) Spiriva with HandiHaler 18 mcg inhalation DAILY famotidine [Acid Controller] 20 mg tablet 20 mg PO BID amlodipine 10 mg tablet 10 mg PO DAILY albuterol sulfate [ProAir HFA] 90 mcg/actuation HFA aerosol inhaler 90 mcg INHALATION Q4-6H PRN (Reason: Dyspnea) atorvastatin 20 mg tablet 20 mg PO DAILY Date of admission: 11/06/22 01:49 Primary Care Provider: SachinJarad Admitting Provider: Cortes Braxton Attending physician on admission: Cortes Braxton Condition: Stable
== END 2022-11-12 13:00 | disposition home or self-care (01) | DRG 130 ==
LOC: ANHED 11-06 01:56 → ANHICU 11-06 22:51 → ANH3MEDSUR 11-12 11:39 → ANHICU 11-14 09:38
PROVIDERS: Internal Medicine; Physician Assistant; Admitting Provider Internal Medicine; Emergency Provider Physician Assistant; PCP Nurse Practitioner Family; Visit Provider Chiropractor
DX: J44.1 Chronic obstructive pulmonary disease with (acute) exacerbation (principal); E87.5 Hyperkalemia; J96.01 Acute respiratory failure with hypoxia; J96.02 Acute respiratory failure with hypercapnia; I71.40 Abdominal aortic aneurysm, without rupture, unspecified; I10 Essential (primary) hypertension; K21.9 Gastro-esophageal reflux disease without esophagitis; F15.10 Other stimulant abuse, uncomplicated; F12.90 Cannabis use, unspecified, uncomplicated; F17.210 Nicotine dependence, cigarettes, uncomplicated; F41.9 Anxiety disorder, unspecified; F32.A Depression, unspecified; Z20.822 Contact with and (suspected) exposure to COVID-19
CPT/HCPCS: 31500; 36415; 36600; 71045; 80048; 80053; 82375; 82805; 82948; 83050; 83735; 84100; 84145; 84478; 85014; 85018; 85025; 85027; 87040; 87636; 92610; 93005; 94003; 94640; 96365; 96366; 96367; 96368; 96375; 97161; 99291; A9270; C9113; J0171; J0330; J0696; J1650; J1815; J1940; J1956; J2250; J2405; J2704; J2920; J2930; J3010; J3475; J7030

== ENCOUNTER 2022-11-15 10:53 | Emergency (ER) | payer BC, SELFPAY ==
--- NOTE | ~2022-11-15 | XR_ITS ---
XR forearm LT 2V 11/15/2022 11:22 INDICATION: Left arm pain after trauma PROCEDURE: 2 views left forearm COMPARISON: No prior studies for comparison. FINDINGS: Fracture, dislocation or subluxation is not identified. The soft tissues appear within norm al limits. No foreign bodies are identified. IMPRESSION: 1: NO ACUTE BONE OR JOINT ABNORMALITY IDENTIFIED. Reviewed, dictated and finalized at location L.
[2022-11-15 10:59] VITALS: TEMP 36.3
--- NOTE | 2022-11-15 12:00 | PC.NURSE ---
patient c/o being too loud in the department and needing to be discharged to [facility] at this time. provider aware
--- NOTE | 2022-11-15 12:03 | PC.NURSE ---
patient refusing CT scan of head. states that she already had that checked out by holt sebas and that she is only here for her left arm pain. provider aware
--- NOTE | 2022-11-15 12:33 | PC.NURSE ---
patient is no longer in room. there was a hand written note on napkin hanging on door. provider aware that patient left department
== END 2022-11-15 12:35 | disposition left against medical advice (07) ==
LOC: ANHED 11:34
PROVIDERS: Emergency Provider Physician Assistant; PCP Nurse Practitioner Family
DX: M79.632 Pain in left forearm (principal)
CPT/HCPCS: 73090; 99199